=== PATIENT | female | born 1955 | race Caucasian/White ===

== ENCOUNTER 2017-09-28 09:30 | Outpatient (CLI) | payer OTHER | END 2017-09-28 09:31 | disposition home or self-care (01) | LOC: BICMAMMO 09:30 | PROVIDERS: ATTEND Family Medicine | DX: Z12.31 Encounter for screening mammogram for malignant neoplasm of breast (principal); R92.1 Mammographic calcification found on diagnostic imaging of breast | CPT/HCPCS: 77067 ==

== ENCOUNTER 2019-08-16 13:14 | Outpatient (CLI) | payer OTHER ==
[2019-08-16] MEDS ORDERED: Iopamidol-370 76% 500 ML 1 ML ONE (13:54)
[2019-08-16 13:58] LABS: Estimated GFR-MDRD - POC Greater than 90
--- NOTE | 2019-08-16 15:42 | CT ---
CT THORAX WITH CONTRAST: DATE: 08/16/2019. HISTORY: A 64-year-old female for followup of lung nodule. TECHNIQUE: IV iodinated contrast media: IV contrast 70 mL Isovue 370. COMPARISON: 11/30/2018. FINDINGS: In the lateral aspect of the superior segment of the right lower lobe, there is a noncalcified pulmon chetan nodule measuring approximately 1.3 x 0.5 x 0.7 cm. Allowing for slight differences in cursor jagruti cement, it has not significantly changed in size. No cardiomegaly, pericardial effusion, pleural effusion, or pneumothorax. Diffuse high-grade centril obular emphysematous changes throughout both lungs. Approximately 0.8 x 0.8 x 1.5 cm irregularly shaped, stellate, noncalcified pulmonary nodule in the l ateral aspect of apical segment of left upper lobe is unchanged. This probably represents focal pulm onary scar, but low-grade pulmonary adenocarcinoma is not excluded. No significant mediastinal or hilar lymphadenopathy. No thoracic aortic aneurysm or dissection. No major interval change overall. IMPRESSION: 1. Right lower lobe pulmonary nodule is unchanged. 2. Left upper lobe pulmonary nodule is unchanged. 3. High-grade centrilobular emphysema. 4. No interval change overall. 5. Recommend continued serial followup chest CTs, beginning in 1 year. REGLA Joe POS: NATHANIEL
== END 2019-08-16 13:15 | disposition home or self-care (01) ==
LOC: BICCT 13:14
PROVIDERS: ATTEND Internal Medicine Critical Care Medicine
DX: R91.1 Solitary pulmonary nodule (principal); J43.2 Centrilobular emphysema
CPT/HCPCS: 71260; 82565; Q9967

== ENCOUNTER 2020-04-12 21:42 | Inpatient (IN) | payer OTHER ==
[2020-04-12 22:34] LABS: Troponin I 0.444 ng/mL (< 0.028)
--- NOTE | 2020-04-12 22:56 | CON ---
DATE OF CONSULTATION: 04/12/2020 REASON FOR CONSULTATION: Abnormal EKG. HISTORY OF PRESENT ILLNESS: Ms. Ledbetter is a pleasant 65-year-old white female, who comes to the hospital for shortness of breath. She actually presented to the Medicine in the hospital at which time she was short winded. She has a significant history of COPD, followed by Dr. Lucia. She still continues to smoke a pack a day until this moment. She presented there, had what was diagnosed as COPD exacerbation and was being transferred over to be placed in the ambulance for transfer to the [place] and right before putting her in the ambulance, a repeat EKG was done and it showed ST elevations on the V3 and V4. Secondary to this, STEMI pager was activated and she was brought in for STEMI activation. On my evaluation, Ms. Ledbetter is severely short winded to the point where we have asked for her to be placed on BiPAP. She is tachypneic. She is denying any chest pain. Her biggest issue is shortness of breath and this is the same issue she always has with her COPD. She is unable to lay flat. PAST MEDICAL HISTORY: 1. COPD. 2. History of CVA, hemorrhagic. PAST SURGICAL HISTORY: Coiling of cerebral aneurysms by Dr. Gaspar in 2012. FAMILY HISTORY: Noncontributory. MEDICATIONS: Outpatient medications: Unavailable at this time. She is unable to talk in full sentences to say any of her medications; however, from chart review, she should be on; 1. Simvastatin 10 mg a day. 2. Potassium chloride 20 mEq a day. 3. Nimodipine 60 mg a day. 4. Ativan p.r.n. 5. Docusate 100 mg b.i.d. ALLERGIES: NO KNOWN DRUG ALLERGIES. SOCIAL HISTORY: Continues to smoke a pack a day. REVIEW OF SYSTEMS: Unobtainable as the patient is unable to talk given her severe shortness of breath. PHYSICAL EXAMINATION: VITAL SIGNS: Temperature 97.2, pulse 110, respiratory rate 30, saturating 96% on 50% FiO2 on the BiPAP currently, blood pressure is 97/62. GENERAL: Awake, alert, oriented to person, place, and time, in moderate to severe respiratory distress. HEENT: Normocephalic and atraumatic. NECK: Supple. LUNGS: Have no breath sounds. No wheezing. ABDOMEN: Soft. EXTREMITIES: No edema. SKIN: Warm and dry. LABORATORY DATA: Laboratory work was reviewed. White count of 9, hemoglobin of 14.9, hematocrit of 44, platelet count of 241. Chemistry unremarkable. Glucose of 134, creatinine is 0.68, potassium was 4.5. Chest x-ray was reviewed, COPD changes. EKG was reviewed, there is ST elevation on V3 and V4. No reciprocal changes. There is a deep Q-waves on those two leads. ASSESSMENT: 1. [id number]-[id number] myocardial infarction. 2. Chronic obstructive pulmonary disease exacerbation. 3. Acute hypoxic hypercapnic respiratory insufficiency. PLAN: 1. At this time, she is not stable for a heart catheterization. She is unable to lay flat and if we were to want to do a heart catheterization, she would have to be intubated and sedated. I think the main issue here is a COPD exacerbation and if we were to do an intubation just for heart catheterization, I think it would be detrimental to her. At this point, her troponin is just mildly elevated, we will trend it out. If it becomes severely elevated, we will plan on going to the lab. However, at this point, her only issue is shortness of breath, not having any chest pain and her EKG is not completely indicative of an acute PR. We will continue to treat medically with full dose of anticoagulation. She already received Lovenox at the outside facility. She should continue with full-dose Lovenox here twice a day. 2. Echocardiogram to be done in the morning. Thank you for letting us to participate in the care of your patient. We will follow. 45 minutes of critical care time. Job ID: [id number]
[2020-04-12] MEDS ORDERED: Nitroglycerin 0.4 MG TAB (25 Tab Bottle) SL PRN (23:02)
[2020-04-12] MEDS ORDERED: Heparin 10,000 UNITS/ 10 ML VIAL SLOW IVP SCH (23:15)
[2020-04-12 23:20] LABS: Hemoglobin 13.6 g/dL (12.0-16.0); Platelet Count 215 thou/uL (130-400)
[2020-04-12] MEDS ORDERED: Heparin 25,000 units/D5W 500 ML IVPB SCH (23:30)
[2020-04-12] MEDS ORDERED: Aspirin 325 MG TAB PO SCH (23:30)
[2020-04-13] MEDS ORDERED: Azithromycin 500 MG VIAL ONE (00:12)
[2020-04-13] MEDS ORDERED: methylPREDNISolone Sod Succ 40 MG VIAL ONE ×2 (00:12→06:49)
[2020-04-13] MEDS: Ipratropium Bromide 2.5 ml Neb NEB SCH ×2 (00:13→08:30)
[2020-04-13] MEDS ORDERED: Heparin 25,000 units/D5W 500 ML ONE (00:13)
[2020-04-13] MEDS ORDERED: Heparin 10,000 UNITS/ 10 ML VIAL ONE (00:20)
[2020-04-13] MEDS: Azithromycin 500 MG in Sodium Chloride 0.9% 250 ML 250 ML IVPB SCH (00:24)
[2020-04-13] MEDS: methylPREDNISolone Sod Succ 40 MG VIAL IVP SCH ×4 (00:25→17:31)
[2020-04-13] MEDS ORDERED: Norepinephrine 8 MG/0.9% NS 250 ML ONE (00:31)
[2020-04-13] MEDS ORDERED: cefTRIAXone\\ROCEPHIN 1 GM VIAL ONE (01:24)
--- NOTE | 2020-04-13 01:24 | HP ---
CHIEF COMPLAINT: Shortness of breath. HISTORY OF PRESENT ILLNESS: Ms. Ledbetter is a 65-year-old female, who presented to [facility] with shortness of breath. The patient was in respiratory distress, placed on BiPAP and was given bronchodilators, Solu-Medrol. During transfer, it was noted the patient had ST elevation on the air sampling and monitoring. The patient was given Lovenox, aspirin. Once the patient arrived, the assistant professor of archaeology saw the patient and evaluated the patient and decision not to take the patient to the collaborative physician. Currently, the patient is on BiPAP. She is feeling little better, but with increased work of breathing. The patient will be admitted to the Intensive Care Unit for further management. As per Cardiology consultation, the patient does have a non-ST elevation myocardial infarction, not stable to go for heart catheterization and as per assistant professor of archaeology, we will continue to trend troponin. If it becomes severely elevated, there will be consideration to do a heart catheterization. The patient also is not having any chest pain at this time and EKG is not completely indicated of acute PA. Recommendation is to continue with full dose Lovenox twice a day and to obtain a 2D echo in the morning. PAST MEDICAL HISTORY: 1. Chronic obstructive pulmonary disease. 2. CVA. PAST SURGICAL HISTORY: No surgical history reported. SOCIAL HISTORY: The patient drinks every day. She smokes cigarettes daily, about one pack a day. FAMILY HISTORY: Reviewed and noncontributory. HOME MEDICATIONS: See home medication reconciliation form for updated medications. ALLERGIES: NO KNOWN ALLERGIES. REVIEW OF SYSTEMS: Review of 14 systems negative except what is mentioned in history of present illness. PHYSICAL EXAMINATION: GENERAL: The patient is awake, alert, in moderate respiratory distress on BiPAP. VITAL SIGNS: Blood pressure 109/67, pulse is 86, respiratory rate is 16, temperature 98.6. HEAD AND NECK: Normocephalic, atraumatic. NECK: Supple. CHEST: Decreased air entry bilaterally. Respirations are labored. HEART: S1, S2. Regular, tachycardic. ABDOMEN: Soft, nontender. Bowel sounds present. NEUROLOGIC: Awake, alert, moving extremities. PSYCH: Unable to assess. EXTREMITIES: No clubbing or cyanosis. LABORATORY DATA: Repeat troponin of 0.4. EKG was suspicious for ST elevation PA. WBC is 9.0, hemoglobin 14.9, platelets 241. Sodium 135, potassium 4.3, BUN is 10, creatinine 0.6. BNP 638. ABG showed pH of 7.24, PCO2 of 72, PO2 of 180. Chest x-ray, marked chronic lung change. No definite acute process. ASSESSMENT AND PLAN: 1. Dzilb-fs-qyquotm hypercapnic respiratory failure. 2. Wtl-XG-vuarjrmxf myocardial infarction. 3. Chronic obstructive pulmonary disease with exacerbation. 4. Cigarette smoker. PLAN: 1. Admit to ICU/CCU. 2. Aspirin. 3. Continue with full-dose Lovenox as per assistant professor of archaeology. 4. Keep the patient n.p.o. for now. 5. Continue with BiPAP. 6. Bronchodilator scheduled as needed. 7. IV steroids. 8. Empiric IV antibiotics. 9. Reconcile home medications. 10. DVT prophylaxis. The patient will be on anticoagulation. 11. GI prophylaxis. 12. Expected length of stay, 2 midnights or more. Job ID: [id number]
[2020-04-13] MEDS: cefTRIAXone\\ROCEPHIN 1 GM in Sodium Chloride 0.9% 100 ML IVPB SCH (01:33)
[2020-04-13 01:35] LABS: Critical Call Chem Troponin I RESULT DECREASING; Troponin I 0.309 ng/mL (< 0.028)
[2020-04-13 04:19] LABS: Cardiac Risk 2.2 (Less than 4.5)
[2020-04-13 04:25] LABS: Troponin I 0.311 ng/mL (< 0.028)
[2020-04-13 06:25] LABS: PTT 127.9 sec (22.9-36.1)
--- NOTE | 2020-04-13 08:59 | CON ---
DATE OF CONSULTATION: 04/13/2020 REASON FOR CONSULTATION: COPD exacerbation with acute hypoxic hypercapnic respiratory failure. HISTORY OF PRESENT ILLNESS: The patient is a 65-year-old female, who presented to an outlying emergency room with severe shortness of breath, which started acutely yesterday morning. She was diagnosed with COPD exacerbation. She was noted to have some ST-segment elevation, for which a STEMI activation was performed and Cardiology came and saw her. She was deemed too unstable to go to the cardiac catheterization lab. She was placed on BiPAP and remained on that for quite sometime, but that was stopped before she came upstairs. I find the patient quite short of breath and cannot verbalize much secondary to her profound dyspnea. She was not on BiPAP when she arrived. PAST MEDICAL HISTORY: 1. Severe COPD. 2. Pulmonary nodules. 3. Stroke. PAST SURGICAL HISTORY: Cerebral aneurysm. FAMILY MEDICAL HISTORY: Unremarkable. MEDICATIONS: Prior to admission; 1. Simvastatin. 2. Potassium. 3. Nimodipine. 4. Docusate. 5. I think she is also on inhalers, but that will need to be confirmed. SOCIAL HISTORY: She has extensive history of tobacco use, but is down to 1 cigarette per day. ALLERGIES: NONE. REVIEW OF SYSTEMS: Cannot be obtained because of her extreme dyspnea at this time. PHYSICAL EXAMINATION: VITAL SIGNS: Heart rate 82, blood pressure 111/78, respiratory rate 30, O2 saturation 100%. The patient is using accessory neck muscles to breathe. HEENT: Unremarkable. NECK: Sternocleidomastoid retractions present. LUNGS: She has tight end-expiratory wheezing. CARDIOVASCULAR: S1 and S2. Regular. ABDOMEN: Soft and nontender to palpation. EXTREMITIES: No clubbing, cyanosis, or edema. LABORATORY DATA: White blood cell count 9.0, hematocrit 39, and platelet count 215 with no discernible left shift. ABG; pH 7.24, pCO2 of 72, pO2 of 180. Sodium 135, potassium 4.3, chloride 97, CO2 of 28, BUN 10, creatinine 0.6, glucose 134, troponin 0.31. I am told a COVID serology is pending. Chest x-ray shows hyperinflation without evidence of mass, effusion, or infiltrate. ASSESSMENT: 1. Chronic obstructive pulmonary disease with exacerbation. 2. Elevated troponin suggesting coronary ischemia. 3. Tobacco abuse. 4. History of pulmonary nodules. 5. History of stroke. PLAN: 1. She is currently being treated medically for an AL with anticoagulation, aspirin, and nitrates. 2. For COPD, we will give her IV corticosteroids, aggressive nebulization treatments, and BiPAP. Additionally, she will receive antibiotics. At the current time, the patient does need to stay in CCU as she has significant chance of getting worse. We will follow. The above encompassed 75 minutes time, of that time, greater than 50% of time spent with the patient and/or the patient's unit in the hospital. Job ID: [id number]
[2020-04-13] MEDS ORDERED: Enoxaparin Sodium 60 MG/0.6 ML SYRINGE SC SCH (09:00)
[2020-04-13 10:13] LABS: Anion Gap 11 mmol/L (10-20); BUN (Urea Nitrogen) 9 mg/dL (9.8-20.1); Calc. Creatinine Clearance 66 mL/min (70-130); Calcium 9.1 mg/dL (7.8-10.44); Carbon Dioxide 28 mmol/L (23-31); Chloride 101 mmol/L (98-107); Estimated GFR-MDRD Greater than 90; Glucose 131 mg/dL (80-115); Potassium 4.3 mmol/L (3.5-5.1); Sodium 136 mmol/L (136-145)
[2020-04-13] MEDS: Aspirin 325 mg Enteric Coated Tablet PO SCH (11:40)
[2020-04-13] MEDS: Famotidine 20 MG TAB PO SCH ×2 (11:40→19:46)
[2020-04-13 12:03] LABS: SARS-CoV-2 MS2 Positive; SARS-CoV-2 N Gene Negative; SARS-CoV-2 S Gene Negative; SARS-CoV-2 by NAA Not Detected (NotDetected); SARS-CoV-2 orf1ab Negative
--- NOTE | 2020-04-13 17:55 | PDOC.CPN ---
- Subjective Date: 04/13/20 Time: 17:53 Interval history: Doing better. Breathing minimally improved. No chest pain. - Review of Systems General: reports: fatigue. denies: fever/chills, weight/appetite/sleep changes, night sweats Respiratory: reports: congestion, shortness of breath, exercise intolerance. denies: cough Cardiovascular: denies: chest pain, palpitation, edema, paroxysmal nocturnal dyspnea, orthopnea Gastrointestinal: denies: nausea, vomiting, diarrhea, constipation, abd pain, GI bleeding Musculoskeletal: denies: pain, tenderness, stiffness, swelling, arthritis/arthralgias Neurological: denies: numbness, syncope, seizure, weakness - Objective Allergies/Adverse Reactions: Allergies Allergy/AdvReac Type Severity Reaction Status Date / Time No Known Drug Allergies Allergy Verified 11/18/12 23:51 Visit Medications: Current Medications Albuterol/Ipratropium (Ipratropium/Albuterol Sulfate 3 Ml Neb) 3 ml NEB [id number] [facility] Last Admin: 04/13/20 12:13 Dose: 3 ml Documented by: Arformoterol Tartrate (Arformoterol 15 Mcg/2 Ml Neb) 15 mcg NEB BID-RT BENITA Aspirin (Aspirin 325 Mg Enteric Coated Tablet) 325 mg PO DAILY [facility] Last Admin: 04/13/20 11:40 Dose: 325 mg Documented by: Budesonide (Budesonide 0.5 Mg/2 Ml Neb) 0.5 mg NEB BID-RT BENITA Enoxaparin Sodium (Enoxaparin Sodium 60 Mg/0.6 Ml Syringe) 50 mg SC Q12HR [facility] Famotidine (Famotidine 20 Mg Tab) 20 mg PO BID [facility] Last Admin: 04/13/20 11:40 Dose: 20 mg Documented by: Azithromycin 500 mg/ Sodium (Chloride) 250 mls @ 250 mls/hr IVPB 2359 [facility] Last Admin: 04/13/20 00:24 Dose: 250 mls Documented by: Ceftriaxone Sodium 1 gm/ (Sodium Chloride) 100 mls @ 200 mls/hr IVPB 0100 [facility] Last Admin: 04/13/20 01:33 Dose: 100 mls Documented by: Methylprednisolone Sodium Succinate (Methylprednisolone Sod Succ 40 Mg Vial) 40 mg IVP Q6HR [facility] Last Admin: 04/13/20 17:31 Dose: 40 mg Documented by: Montelukast Sodium (Montelukast Sodium 10 Mg Tablet) 10 mg PO QPM [facility] Nitroglycerin (Nitroglycerin 0.4 Mg Tab (25 Tab Bottle)) 0.4 mg SL Q5MIN PRN PRN Reason: Chest Pain Pneumococcal Polyvalent Vaccine (Pneumococcal 23 "Pneumovax" 0.5 Ml Vial) 0.5 ml IM .ONCE ONE Stop: 04/14/20 16:01 Sodium Chloride (Flush - Normal Saline 10 Ml Syringe) 10 ml IVF Q12HR [facility] Last Admin: 04/13/20 11:40 Dose: 10 ml Documented by: Sodium Chloride (Flush - Normal Saline 10 Ml Syringe) 10 ml IVF PRN PRN PRN Reason: Saline Flush Vital Signs & Weight: Vital Signs Temp Pulse Resp Pulse Ox 04/13/20 16:00 100 04/13/20 15:00 98.1 F 04/13/20 14:37 67 15 100 04/13/20 12:13 70 16 100 04/13/20 12:00 97.8 F 100 04/13/20 08:09 98.3 F 04/13/20 08:07 77 18 100 04/13/20 08:00 100 Weight 102 lb 4.712 oz - Physical Exam General: alert & oriented x3 HEENT: mucus membranes moist Neck: supple neck Cardiac: tachycardia Lungs: decreased breath sounds Neuro: no lateralizing findings Abdomen: active bowel sounds Extremities: no edema Skin: clear Musculoskeletal: no pain - Labs Result Diagrams: 04/12/20 21:53 04/13/20 09:47 Troponin/CKMB Troponin I 0.311 ng/mL (< 0.028) H* 04/13/20 03:37 - Telemetry Sinus rhythms and dysrhythmias: sinus tachycardia - Assessment/Plan Assessment/Plan: 1. COPD with acute exacerbation. 2. Acute hypoxic hypercapnic respiratory insufficiency. 3. Abnormal EKG 4. Type 2 AK, demand ischemia PLAN: - Would continue full anticoagulation for 48 hrs. - Primarily a lung issue but may have underlying CAD given her Hx of smoking. - Troponin trend is that of demand ischemia however and not an acute coronary syndrome. - Echo pending. - Will follow.
[2020-04-13] MEDS: Arformoterol 15 MCG/2 ML NEB NEB SCH (18:54)
[2020-04-13] MEDS: Budesonide 0.5 MG/2 ML NEB NEB SCH (18:56)
[2020-04-13] MEDS: Montelukast Sodium 10 mg Tablet PO SCH (19:46)
[2020-04-13] MEDS: Enoxaparin Sodium 60 MG/0.6 ML SYRINGE SC SCH (19:46)
--- NOTE | 2020-04-13 21:31 | PDOC.HOSPP ---
- Subjective Encounter Date: 04/13/20 Encounter Time: 11:00 Subjective: Patient was seen and examined in bed. She was on BiPAP otherwise denied no worsening shortness of breath. She also denied any chest pain and feels better - Objective Vital Signs & Weight: Vital Signs (12 hours) Temp Pulse Resp Pulse Ox 04/13/20 20:00 97 04/13/20 19:00 97.7 F 04/13/20 18:57 73 25 H 100 04/13/20 18:56 69 17 100 04/13/20 18:54 77 21 H 99 04/13/20 16:00 100 04/13/20 15:00 98.1 F 04/13/20 14:37 67 15 100 04/13/20 12:13 70 16 100 04/13/20 12:00 97.8 F 100 Weight Weight 102 lb 4.712 oz Most Recent Monitor Data Heart Rate from ECG 83 NIBP 94/44 NIBP BP-Mean 60 Respiration from ECG 21 SpO2 99 I&O: 04/12/20 04/13/20 04/14/20 06:59 06:59 06:59 Intake Total 960 Output Total 800 Balance 160 Result Diagrams: 04/12/20 21:53 04/13/20 09:47 Hospitalist ROS - Medication Medications: Active Medications Generic Name Dose Route Start Last Admin Trade Name Freq PRN Reason Stop Dose Admin Albuterol/Ipratropium 3 ml 04/13/20 13:00 04/13/20 18:57 Ipratropium/Albuterol Sulfate 3 Ml Neb NEB 3 ml [id number] BENITA Administration Arformoterol Tartrate 15 mcg 04/13/20 18:30 04/13/20 18:54 Arformoterol 15 Mcg/2 Ml Neb NEB 15 mcg BID-RT BENITA Administration Aspirin 325 mg 04/13/20 09:00 04/13/20 11:40 Aspirin 325 Mg Enteric Coated Tablet PO 325 mg DAILY [facility]ENITA Administration Budesonide 0.5 mg 04/13/20 18:30 04/13/20 18:56 Budesonide 0.5 Mg/2 Ml Neb NEB 0.5 mg BID-RT BENITA Administration Enoxaparin Sodium 50 mg 04/13/20 21:00 04/13/20 19:46 Enoxaparin Sodium 60 Mg/0.6 Ml Syringe SC 50 mg Q12HR BENITA Administration Famotidine 20 mg 04/13/20 09:00 04/13/20 19:46 Famotidine 20 Mg Tab PO 20 mg BID BENITA Administration Azithromycin 500 mg/ Sodium 250 mls @ 250 mls/hr 04/12/20 23:59 04/13/20 00:24 Chloride IVPB 250 mls 2359 BENITA Administration Ceftriaxone Sodium 1 gm/ 100 mls @ 200 mls/hr 04/13/20 01:00 04/13/20 01:33 Sodium Chloride IVPB 100 mls 0100 BENITA Administration Methylprednisolone Sodium Succinate 40 mg 04/12/20 23:59 04/13/20 17:31 Methylprednisolone Sod Succ 40 Mg Vial IVP 40 mg Q6HR BENITA Administration Montelukast Sodium 10 mg 04/13/20 21:00 04/13/20 19:46 Montelukast Sodium 10 Mg Tablet PO 10 mg QPM BENITA Administration Sodium Chloride 10 ml 04/13/20 09:00 04/13/20 19:47 Flush - Normal Saline 10 Ml Syringe IVF 10 ml Q12HR BENITA Administration - Exam General Appearance: awake alert Eye: PERRL, anicteric sclera Heart: RRR, no murmur, no gallops, no rubs Respiratory - other findings: Bilateral wheezing, reduced air entry bilaterally Gastrointestinal: soft, non-distended, normal bowel sounds Extremities: no cyanosis, no clubbing, no edema Neurological: cranial nerve grossly intact, no focal deficits Psychiatric: A&O x 3 Hosp A/P - Plan This is a 65-year-old female patient admitted on account of acute COPD exacerbation and concerns for acute coronary syndrome. COPD exacerbation Continue on steroids, antibiotics and monitor in ICU Continue on arformoterol, budesonide, Solu-Medrol and montelukast Pulmonology following. NSTEMI Continue anticoagulationLovenox Aspirin nitroglycerin Echocardiogram Cardiology following VTE prophylaxistherapeutic on Lovenox
[2020-04-14] MEDS: Azithromycin 500 MG in Sodium Chloride 0.9% 250 ML 250 ML IVPB SCH (00:52)
[2020-04-14] MEDS: methylPREDNISolone Sod Succ 40 MG VIAL IVP SCH ×4 (00:53→22:29)
[2020-04-14] MEDS: cefTRIAXone\\ROCEPHIN 1 GM in Sodium Chloride 0.9% 100 ML IVPB SCH (01:45)
[2020-04-14 03:33] LABS: #Lymphocytes 0.5 thou/uL (1.20-3.40); #Monocytes 0.3 thou/uL (0.11-0.59); #Neutrophils 3.7 thou/uL (1.40-6.50); %Basophils 0.3 % (0.0-1.0); %Eosinophils 0.2 % (0.0-10.0); %Lymphocytes 10.3 % (21.0-51.0); %Monocytes 7.4 % (0.0-10.0); %Neutrophils 81.8 % (42.0-75.0); Hemoglobin 11.4 g/dL (12.0-16.0); Mean Corpuscular HGB CONC 34.4 g/dL (32.0-36.0); Mean Corpuscular Hemoglobin 35.4 pg (27.0-31.0); Mean Platelet Volume 8.7 fL (7.4-10.4); Platelet Count 188 thou/uL (130-400); RBC Distribution Width 10.6 % (11.5-14.5); Red Blood Cell (RBC) Count 3.23 mill/uL (4.20-5.40); White Blood Cell (WBC) Count 4.5 thou/uL (4.8-10.8)
[2020-04-14] MEDS: Aspirin 325 mg Enteric Coated Tablet PO SCH (07:57)
[2020-04-14] MEDS: Enoxaparin Sodium 60 MG/0.6 ML SYRINGE SC SCH (07:57)
[2020-04-14] MEDS: Famotidine 20 MG TAB PO SCH ×2 (07:57→22:27)
[2020-04-14] MEDS: Budesonide 0.5 MG/2 ML NEB NEB SCH ×2 (08:23→19:10)
[2020-04-14] MEDS: Arformoterol 15 MCG/2 ML NEB NEB SCH ×2 (08:23→19:10)
--- NOTE | 2020-04-14 08:24 | PRG ---
DATE OF SERVICE: 04/14/2020 SUBJECTIVE: She has been taken off the BiPAP this morning and appears to be breathing quite well. My concern is she seems somewhat confused and dysarthric to what I remember her in the past. OBJECTIVE: VITAL SIGNS: Her temperature is 98.1, pulse 68, blood pressure 91/53, saturation 100%. HEENT: Unremarkable. NECK: No adenopathy or JVD. LUNGS: Clear anteriorly. No wheezing. CARDIAC: S1 and S2. Regular. ABDOMEN: Soft. EXTREMITIES: No edema. LABORATORY DATA: White blood cell count 4.5, hematocrit 33.3, and platelet count 188. PTT is 127. Chemistry was not done today. COVID test is negative. ASSESSMENT: 1. Chronic obstructive pulmonary disease with exacerbation. 2. Demand coronary ischemia. 3. Altered mental status. PLAN: 1. Decrease steroid dose. 2. Transfer to [facility] if okay with others on case. 3. CT head to rule out stroke. Job ID: [id number]
--- NOTE | 2020-04-14 10:11 | PDOC.HOSPP ---
- Subjective Encounter Date: 04/14/20 Encounter Time: 11:00 Subjective: The patient states she feels better. She states she was coughing a lot a few days ago and was very short of breath on Wednesday but now is doing better. She denies chest pain Patient states that she had a stroke 6 years ago and she was is in a longterm for approximately 2 months and had some weakness on one side of her body. Her speech has been slightly affected from this. - Objective Vital Signs & Weight: Vital Signs (12 hours) Temp Pulse Resp Pulse Ox 04/14/20 08:26 100 04/14/20 08:21 81 21 H 100 04/14/20 08:00 98.2 F 100 04/14/20 04:00 98.1 F 99 04/14/20 03:31 63 19 100 04/14/20 01:47 82 10 L 100 04/14/20 01:46 78 25 H 98 04/14/20 00:00 98 04/13/20 23:00 98.3 F 04/13/20 22:20 84 23 H 96 Weight Weight 102 lb 4.712 oz Most Recent Monitor Data Heart Rate from ECG 77 NIBP 118/66 NIBP BP-Mean 83 Respiration from ECG 19 SpO2 98 I&O: 04/13/20 04/14/20 04/15/20 06:59 06:59 06:59 Intake Total 1510 Output Total 1000 500 Balance 510 -500 Result Diagrams: 04/14/20 03:05 04/13/20 09:47 Hospitalist ROS - Review of Systems Constitutional: denies: fever, chills - Medication Medications: Active Medications Generic Name Dose Route Start Last Admin Trade Name Cedricq PRN Reason Stop Dose Admin Albuterol/Ipratropium 3 ml 04/13/20 13:00 04/14/20 08:21 Ipratropium/Albuterol Sulfate 3 Ml Neb NEB 3 ml [id number] BENITA Administration Arformoterol Tartrate 15 mcg 04/13/20 18:30 04/14/20 08:23 Arformoterol 15 Mcg/2 Ml Neb NEB 15 mcg BID-RT BENITA Administration Aspirin 325 mg 04/13/20 09:00 04/14/20 07:57 Aspirin 325 Mg Enteric Coated Tablet PO 325 mg DAILY BENITA Administration Budesonide 0.5 mg 04/13/20 18:30 04/14/20 08:23 Budesonide 0.5 Mg/2 Ml Neb NEB 0.5 mg BID-RT BENITA Administration Enoxaparin Sodium 50 mg 04/13/20 21:00 04/14/20 07:57 Enoxaparin Sodium 60 Mg/0.6 Ml Syringe SC 50 mg Q12HR BENITA Administration Famotidine 20 mg 04/13/20 09:00 04/14/20 07:57 Famotidine 20 Mg Tab PO 20 mg BID BENITA Administration Ceftriaxone Sodium 1 gm/ 100 mls @ 200 mls/hr 04/13/20 01:00 04/14/20 01:45 Sodium Chloride IVPB 100 mls 0100 BENITA Administration Methylprednisolone Sodium Succinate 20 mg 04/14/20 09:00 04/14/20 08:35 Methylprednisolone Sod Succ 40 Mg Vial IVP Not Given BID BENITA Montelukast Sodium 10 mg 04/13/20 21:00 04/13/20 19:46 Montelukast Sodium 10 Mg Tablet PO 10 mg QPM BENITA Administration Sodium Chloride 10 ml 04/13/20 09:00 04/14/20 07:58 Flush - Normal Saline 10 Ml Syringe IVF 10 ml Q12HR BENITA Administration - Exam General Appearance: NAD, awake alert Eye: PERRL, anicteric sclera ENT: normocephalic atraumatic, no oropharyngeal lesions Neck: no JVD Heart: RRR, no murmur, no gallops, no rubs Respiratory: CTAB, no wheezes, no rales, no ronchi Gastrointestinal: soft, non-tender, non-distended, normal bowel sounds Extremities: no cyanosis, no clubbing, no edema Skin: normal turgor, no lesions, no rashes Neurological: cranial nerve grossly intact, normal sensation to touch, no focal deficits, no new deficit, speech deficit (has some trouble with word finding and complex sentences) Musculoskeletal: normal tone, normal strength, no muscle wasting Psychiatric: normal affect, normal behavior, A&O x 3 Hosp A/P (1) Right lower lobe pulmonary nodule Code(s): R91.1 - SOLITARY PULMONARY NODULE Status: Acute (2) Left lower lobe pulmonary nodule Code(s): R91.1 - SOLITARY PULMONARY NODULE Status: Acute (3) Myocardial infarction due to demand ischemia Code(s): I21.A1 - MYOCARDIAL INFARCTION TYPE 2 Status: Acute (4) Macrocytic anemia Code(s): D53.9 - NUTRITIONAL ANEMIA, UNSPECIFIED Status: Acute - Plan Chest X ray: marked chronic lung change. Stable RLL pulmonary nodule. Nodule at left lung apex ECHO: EF is 40 to 45% with diastolic dysfunction. There is anteroseptal hypokinesis. There is a pericardial effusion without tamponade. There is mild TR. CT brain: Left MCA encephalomalacia . Remote right cerebellar hemisphere infarctions. Lacunar infarctions of the left basal ganglia of indeterminate age. This is a 65 year old female who was transferred. From [place] [facility] for shortness of breath and concern for ST elevation on quality assurance monitor final. Currently admitted for COPD exacerbation Acute hypoxic respiratory failure secondary to COPD exacerbation - currently on 2L nasal cannula, wean oxygen sat to 92%. Chest X ray normal - she is on duonebs, brovana and IV steroids. IV steroids tapered to bid - received ceftriaxone and azithromycin. I will discontinue ceftriaxone and switch azithromycin to oral to 50 mg - she was transferred to [facility] - cardiac rehab evaluation ordered #NSTEMI #Systolic heart failure - cardiology is following, not suspicious of acute coronary syndrome. Patient denies chest pain - continue lovenox for 48 hours per cardiology . Unable to do left heart cath at this time since patient cannot lay flat - ECHO showed reduce EF - continue aspirin. Will add statin History of previous stroke - continue aspirin 325 mg and will add statin Dispo: PT evaluation in am, possibly d/c home after
--- NOTE | 2020-04-14 11:51 | CT ---
CT HEAD WITHOUT IV CONTRAST COMPARISON: 12/24/2014 HISTORY: Altered mental status. History of prior strokes. TECHNIQUE: Axial CT imaging at 5 mm intervals from vertex through skull base without contrast FINDINGS: Again noted are embolization coils and coil masses in a left supraclinoid location similar to prior e xam. Stable area of encephalomalacia involving the left frontal and temporal lobes in the distribution of the left middle cerebral artery is again noted. There is ex vacuo dilatation of the l eft lateral ventricle. Low-density areas in the left basal ganglia are likely related to lacunar infarctions of indeterminate age and were not seen on the prior study but probably more remote in [facility]. A view low density areas are seen within the right cerebellar hemisphere likely related to small remote infarctions. There is no evidence of an acute cortical infarction, hemorrhage, mass effect, or midline shift. Skull base has a normal CT appearance. Mucosal thickening is present in the right maxillary antrum. The mastoid air cells are clear. Osseous structures appear intact. IMPRESSION: 1. No acute intracranial abnormality demonstrated. 2. Lacunar infarctions left basal ganglia of indeterminate age and were not seen on study in 2014. Ho wever, these infarctions are felt to more likely be related to remote lacunar infarctions. No acute cortical infarction is seen. 3. Remote right cerebellar hemisphere infarctions. 4. Encephalomalacia in the distribution of the left middle cerebral artery. 5. Mucosal thickening right maxillary antrum.
--- NOTE | 2020-04-14 15:00 | PDOC.CPN ---
- Subjective Date: 04/14/20 Time: 14:58 Interval history: Breathing better than yesterday now off BiPAP. No chest pain. - Review of Systems General: denies: fever/chills, weight/appetite/sleep changes, night sweats, fatigue Respiratory: reports: shortness of breath. denies: cough, congestion, exercise intolerance Cardiovascular: denies: chest pain, palpitation, edema, paroxysmal nocturnal dyspnea, orthopnea Gastrointestinal: denies: nausea, vomiting, diarrhea, constipation, abd pain, GI bleeding Musculoskeletal: denies: pain, tenderness, stiffness, swelling, arthritis/arthralgias Neurological: denies: numbness, syncope, seizure, weakness - Objective Allergies/Adverse Reactions: Allergies Allergy/AdvReac Type Severity Reaction Status Date / Time No Known Drug Allergies Allergy Verified 11/18/12 23:51 Visit Medications: Current Medications Albuterol/Ipratropium (Ipratropium/Albuterol Sulfate 3 Ml Neb) 3 ml NEB [id number] [facility] Last Admin: 04/14/20 13:44 Dose: 3 ml Documented by: Arformoterol Tartrate (Arformoterol 15 Mcg/2 Ml Neb) 15 mcg NEB BID-RT [facility]ENITA Last Admin: 04/14/20 08:23 Dose: 15 mcg Documented by: Aspirin (Aspirin 325 Mg Enteric Coated Tablet) 325 mg PO DAILY [facility] Last Admin: 04/14/20 07:57 Dose: 325 mg Documented by: Budesonide (Budesonide 0.5 Mg/2 Ml Neb) 0.5 mg NEB BID-RT [facility] Last Admin: 04/14/20 08:23 Dose: 0.5 mg Documented by: Enoxaparin Sodium (Enoxaparin Sodium 60 Mg/0.6 Ml Syringe) 50 mg SC Q12HR [facility] Last Admin: 04/14/20 07:57 Dose: 50 mg Documented by: Famotidine (Famotidine 20 Mg Tab) 20 mg PO BID [facility] Last Admin: 04/14/20 07:57 Dose: 20 mg Documented by: Ceftriaxone Sodium 1 gm/ (Sodium Chloride) 100 mls @ 200 mls/hr IVPB 0100 [facility] Last Admin: 04/14/20 01:45 Dose: 100 mls Documented by: Methylprednisolone Sodium Succinate (Methylprednisolone Sod Succ 40 Mg Vial) 20 mg IVP BID [facility] Last Admin: 04/14/20 08:35 Dose: Not Given Documented by: Montelukast Sodium (Montelukast Sodium 10 Mg Tablet) 10 mg PO QPM [facility] Last Admin: 04/13/20 19:46 Dose: 10 mg Documented by: Nitroglycerin (Nitroglycerin 0.4 Mg Tab (25 Tab Bottle)) 0.4 mg SL Q5MIN PRN PRN Reason: Chest Pain Pneumococcal Polyvalent Vaccine (Pneumococcal 23 "Pneumovax" 0.5 Ml Vial) 0.5 ml IM .ONCE ONE Stop: 04/14/20 16:01 Sodium Chloride (Flush - Normal Saline 10 Ml Syringe) 10 ml IVF Q12HR [facility] Last Admin: 04/14/20 07:58 Dose: 10 ml Documented by: Sodium Chloride (Flush - Normal Saline 10 Ml Syringe) 10 ml IVF PRN PRN PRN Reason: Saline Flush Vital Signs & Weight: Vital Signs Temp Pulse Resp Pulse Ox 04/14/20 13:44 87 18 99 04/14/20 12:00 97.8 F 04/14/20 10:50 81 19 99 04/14/20 08:26 100 04/14/20 08:21 81 21 H 100 04/14/20 08:00 98.2 F 100 04/14/20 04:00 98.1 F 99 04/14/20 03:31 63 19 100 Weight 102 lb 4.712 oz - Physical Exam General: alert & oriented x3 HEENT: normocephaly Neck: supple neck Cardiac: tachycardia Lungs: normal breath sounds Neuro: no lateralizing findings Abdomen: active bowel sounds Extremities: no edema Skin: clear Musculoskeletal: no pain - Labs Result Diagrams: 04/14/20 03:05 04/13/20 09:47 Troponin/CKMB Troponin I 0.311 ng/mL (< 0.028) H* 04/13/20 03:37 - Telemetry Sinus rhythms and dysrhythmias: sinus tachycardia - Assessment/Plan Assessment/Plan: 1. COPD with acute exacerbation. 2. Acute hypoxic hypercapnic respiratory insufficiency. 3. Abnormal EKG 4. Type 2 MN, demand ischemia 5. Cardiomyopathy EF at 40-45% PLAN: - Continue full anticoagulation for 48 hrs. - Primarily a lung issue but may have underlying CAD given her Hx of smoking. - EF reduced with mild septal hypokinesis. - Troponin trend is that of demand ischemia however and not an acute coronary syndrome. - Will likely need risk stratification with stress or LHC however at this time she is unable to lay flat. Her COPD is so advanced that it may not be in her best interest to undergo any invasive procedures. - Will follow.
[2020-04-14] MEDS: Montelukast Sodium 10 mg Tablet PO SCH (22:27)
[2020-04-14] MEDS: Atorvastatin Calcium 40 MG TAB PO SCH (22:28)
[2020-04-14] MEDS: Azithromycin 250 MG TAB PO SCH (22:28)
[2020-04-14 23:38] LABS: Platelet Count 194 thou/uL (130-400)
[2020-04-15] MEDS: Enoxaparin Sodium 60 MG/0.6 ML SYRINGE SC SCH ×3 (03:04→21:13)
[2020-04-15 03:54] LABS: #Lymphocytes 0.3 thou/uL (1.20-3.40); #Monocytes 0.2 thou/uL (0.11-0.59); #Neutrophils 6.1 thou/uL (1.40-6.50); %Eosinophils 0.1 % (0.0-10.0); %Lymphocytes 3.9 % (21.0-51.0); %Monocytes 3.5 % (0.0-10.0); %Neutrophils 92.5 % (42.0-75.0); Hemoglobin 11.5 g/dL (12.0-16.0); Mean Corpuscular HGB CONC 34.2 g/dL (32.0-36.0); Mean Corpuscular Hemoglobin 35.8 pg (27.0-31.0); Mean Platelet Volume 8.7 fL (7.4-10.4); Platelet Count 187 thou/uL (130-400); RBC Distribution Width 10.7 % (11.5-14.5); Red Blood Cell (RBC) Count 3.19 mill/uL (4.20-5.40); White Blood Cell (WBC) Count 6.6 thou/uL (4.8-10.8)
[2020-04-15 04:06] LABS: Anion Gap 12 mmol/L (10-20); BUN (Urea Nitrogen) 21 mg/dL (9.8-20.1); Calc. Creatinine Clearance 64 mL/min (70-130); Calcium 8.7 mg/dL (7.8-10.44); Carbon Dioxide 27 mmol/L (23-31); Chloride 100 mmol/L (98-107); Estimated GFR-MDRD Greater than 90; Glucose 143 mg/dL (80-115); Potassium 3.7 mmol/L (3.5-5.1); Sodium 135 mmol/L (136-145)
[2020-04-15] MEDS: Arformoterol 15 MCG/2 ML NEB NEB SCH ×2 (06:50→19:07)
[2020-04-15] MEDS: Budesonide 0.5 MG/2 ML NEB NEB SCH ×2 (06:54→19:07)
[2020-04-15] MEDS: Famotidine 20 MG TAB PO SCH ×2 (09:56→21:12)
--- NOTE | 2020-04-15 09:56 | PRG ---
DATE OF SERVICE: 04/15/2020 SUBJECTIVE: She seemed a little confused today, but does not appear to be in any respiratory distress. OBJECTIVE: VITAL SIGNS: Temperature 98.1, pulse 81, blood pressure 128/80, and O2 saturation 95%. HEENT: Unremarkable. NECK: No adenopathy or JVD. LUNGS: Clear, but distant breath sounds. CARDIAC: S1 and S2. Regular. ABDOMEN: Soft. EXTREMITIES: No edema. DIAGNOSTIC STUDIES: Head CT showed some old lacunar infarcts and some remote right cerebellar hemispheric infarctions. Echocardiogram demonstrates decreased EF of 40% to 45% with some diastolic dysfunction. LABORATORY DATA: White blood cell count 6.6, hematocrit 33.5, and platelet count 187. Sodium 135, potassium 3.7, chloride 100, CO2 of 27, BUN 21, creatinine 0.6, and glucose 143. ASSESSMENT: 1. Chronic obstructive pulmonary disease with exacerbation. 2. Previous strokes with some degree of expressive aphasia. 3. Demand coronary ischemia. PLAN: 1. Continue low-dose steroids, nebulization treatments, but extend interval of nebs to every 4 hours. 2. She can probably go to the medical floor later today if she does not require BiPAP. Job ID: [id number]
[2020-04-15] MEDS: methylPREDNISolone Sod Succ 40 MG VIAL IVP SCH ×2 (09:57→21:13)
[2020-04-15] MEDS: Aspirin 325 mg Enteric Coated Tablet PO SCH (09:57)
--- NOTE | 2020-04-15 13:39 | PQF ---
CLINICAL DOCUMENTATION CLARIFICATION FORM: Dear Dr. Hendricks Date: 04/15/20 Please exercise your independent, professional judgment in responding to the clarification form. Clinical indicators are provided on the bottom of this form for your review. Please check appropriate box(es): [ ] Protein Calorie Malnutrition: [ X ] Mild [ ] Moderate [ ] Severe [ ] Other Malnutrition (please specify) [ ] Underweight without malnutrition [ ] Cachexia [ ] Other diagnosis [ ] Unable to determine In addition, please specify: Present on Admission (POA): [ X] Yes [ ] No [ ] Unable to determine For continuity of documentation, please document condition throughout progress notes and discharge summary. Thank You. To be completed by CDI/Coding staff for physician review: CLINICAL INDICATORS - SIGNS / SYMPTOMS / LABS / RESULTS AND LOCATION IN MR DIETARY NOTE 04/15: "MILD MUSCLE WASTING TO TRAPEZIUS" ER NOTE: "PATIENT IS FRAIL-APPEARING" BMI 17.6 RISKS: H/O COPD (H&P- MOHAMED-SAURAV) SMOKER (H&P) DAILY ALCOHOL CONSUMPTION (H&P) TREATMENT: DIETARY CONSULT 04/15 NUTRITIONAL SUPPLEMENTS RECOMMENDED (DIETARY ASSESSMENT 04/15) Moderate Malnutrition (in acute illness) Energy Intake: <75% of estimated energy requirement for > 7 days Weight Loss: 1-2%/1 week; 5%/ 1 month; 7.5%/3 months Other: mild body fat loss; mild muscle mass loss; mild fluid accumulation; Severe Malnutrition (in acute illness) Energy Intake: = 50% of estimated energy requirement for = 5 days Weight Loss: >2%/1 week; >5%/1 month; >7.5%/3 months Other: moderate body fat loss; moderate muscle mass loss; moderate- severe fluid accumulation; 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 Moderate Malnutrition (in chronic illness) Energy Intake: <75% of estimated energy requirement for =1 month Weight Loss: 5%/1 month; 7.5%/3 months; 10%/6 months; 20%/1 year Other: mild body fat loss; mild muscle mass loss; mild fluid accumulation Severe Malnutrition (in chronic illness) Energy Intake: =75% of estimated energy requirement for =1 month Weight Loss: >5%/1 month; >7.5%/3 months; >10%/6 months; >20%/1 year Other: severe body fat loss; severe muscle mass loss; severe fluid accumulation; 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
--- NOTE | 2020-04-15 14:28 | PDOC.CPN ---
- Subjective Date: 04/15/20 Time: 14:26 Interval history: Her breathing is getting better but she feels very weak and has difficulty even standing up due to lack of strength. - Review of Systems General: denies: fever/chills, weight/appetite/sleep changes, night sweats, fatigue Respiratory: reports: shortness of breath, exercise intolerance. denies: cough, congestion Cardiovascular: denies: chest pain, palpitation, edema, paroxysmal nocturnal dyspnea, orthopnea Gastrointestinal: denies: nausea, vomiting, diarrhea, constipation, abd pain, GI bleeding Musculoskeletal: denies: pain, tenderness, stiffness, swelling, arthritis/arthralgias Neurological: denies: numbness, syncope, seizure, weakness - Objective Allergies/Adverse Reactions: Allergies Allergy/AdvReac Type Severity Reaction Status Date / Time No Known Drug Allergies Allergy Verified 11/18/12 23:51 Visit Medications: Current Medications Albuterol/Ipratropium (Ipratropium/Albuterol Sulfate 3 Ml Neb) 3 ml NEB [id number] [facility] Last Admin: 04/15/20 10:19 Dose: 3 ml Documented by: Arformoterol Tartrate (Arformoterol 15 Mcg/2 Ml Neb) 15 mcg NEB BID-RT [facility]ENITA Last Admin: 04/15/20 06:50 Dose: 15 mcg Documented by: Aspirin (Aspirin 325 Mg Enteric Coated Tablet) 325 mg PO DAILY [facility] Last Admin: 04/15/20 09:57 Dose: 325 mg Documented by: Atorvastatin Calcium (Atorvastatin Calcium 40 Mg Tab) 40 mg PO HS [facility] Last Admin: 04/14/20 22:28 Dose: 40 mg Documented by: Azithromycin (Azithromycin 250 Mg Tab) 250 mg PO Q24HR BENITA Stop: 04/17/20 23:01 Last Admin: 04/14/20 22:28 Dose: 250 mg Documented by: Budesonide (Budesonide 0.5 Mg/2 Ml Neb) 0.5 mg NEB BID-RT [facility] Last Admin: 04/15/20 06:54 Dose: 0.5 mg Documented by: Enoxaparin Sodium (Enoxaparin Sodium 60 Mg/0.6 Ml Syringe) 50 mg SC Q12HR [facility] Last Admin: 04/15/20 03:04 Dose: Not Given Documented by: Famotidine (Famotidine 20 Mg Tab) 20 mg PO BID [facility] Last Admin: 04/15/20 09:56 Dose: 20 mg Documented by: Methylprednisolone Sodium Succinate (Methylprednisolone Sod Succ 40 Mg Vial) 20 mg IVP BID [facility] Last Admin: 04/15/20 09:57 Dose: 20 mg Documented by: Montelukast Sodium (Montelukast Sodium 10 Mg Tablet) 10 mg PO QPM [facility] Last Admin: 04/14/20 22:27 Dose: 10 mg Documented by: Nitroglycerin (Nitroglycerin 0.4 Mg Tab (25 Tab Bottle)) 0.4 mg SL Q5MIN PRN PRN Reason: Chest Pain Sodium Chloride (Flush - Normal Saline 10 Ml Syringe) 10 ml IVF Q12HR [facility] Last Admin: 04/15/20 09:59 Dose: 10 ml Documented by: Sodium Chloride (Flush - Normal Saline 10 Ml Syringe) 10 ml IVF PRN PRN PRN Reason: Saline Flush Vital Signs & Weight: Vital Signs Temp Pulse Pulse Pulse Resp BP BP 04/15/20 12:07 87 103 H 146/84 H 165/104 H 04/15/20 11:31 98.2 F 04/15/20 10:19 85 18 04/15/20 08:00 04/15/20 07:00 98.1 F 04/15/20 06:54 79 20 04/15/20 06:53 79 20 04/15/20 06:50 79 20 04/15/20 03:50 98.6 F 04/15/20 03:39 Pulse Ox Pulse Ox 04/15/20 12:07 95 04/15/20 11:31 04/15/20 10:19 100 04/15/20 08:00 95 04/15/20 07:00 04/15/20 06:54 04/15/20 06:53 04/15/20 06:50 04/15/20 03:50 04/15/20 03:39 99 Admit Weight 102 lb 4.712 oz Weight 102 lb 4.712 oz - Physical Exam General: alert & oriented x3 HEENT: mucus membranes moist Neck: supple neck Cardiac: regular rate and rhythm Lungs: decreased breath sounds Neuro: no lateralizing findings Abdomen: active bowel sounds Extremities: no edema Skin: clear Musculoskeletal: no pain - Labs Result Diagrams: 04/15/20 03:09 04/15/20 03:09 Troponin/CKMB Troponin I 0.311 ng/mL (< 0.028) H* 04/13/20 03:37 - Telemetry Sinus rhythms and dysrhythmias: sinus rhythm - Assessment/Plan Assessment/Plan: 1. COPD with acute exacerbation. 2. Acute hypoxic hypercapnic respiratory insufficiency. 3. Abnormal EKG 4. Type 2 IA, demand ischemia 5. Cardiomyopathy EF at 40-45% PLAN: - Done with full anticoagulation at this point. - Primarily a lung issue but may have underlying CAD given her Hx of smoking. - EF reduced with mild septal hypokinesis. - Troponin trend is that of demand ischemia and not an acute coronary syndrome. - Will need risk stratification with stress test as outpatient once better from lung perspective. - Will follow.
--- NOTE | 2020-04-15 17:43 | PDOC.HOSPP ---
- Subjective Encounter Date: 04/15/20 Encounter Time: 10:00 Subjective: The patient states she is still short of breath a t times. Per nursing she gets tachypneic to 30's, partially combination of anxiety and COPD. She had not seen PT yet when I saw her this mroning - Objective Vital Signs & Weight: Vital Signs (12 hours) Temp Pulse Pulse Pulse Resp BP BP 04/15/20 14:26 79 18 04/15/20 12:07 87 103 H 146/84 H 165/104 H 04/15/20 11:31 98.2 F 04/15/20 10:19 85 18 04/15/20 08:00 04/15/20 07:00 98.1 F 04/15/20 06:54 79 20 04/15/20 06:53 79 20 04/15/20 06:50 79 20 Pulse Ox Pulse Ox 04/15/20 14:26 99 04/15/20 12:07 95 04/15/20 11:31 04/15/20 10:19 100 04/15/20 08:00 95 04/15/20 07:00 04/15/20 06:54 04/15/20 06:53 04/15/20 06:50 Weight Admit Weight 102 lb 4.712 oz Weight 102 lb 4.712 oz Most Recent Monitor Data Heart Rate from ECG 98 NIBP 155/100 NIBP BP-Mean 118 Respiration from ECG 25 SpO2 93 I&O: 04/14/20 04/15/20 04/16/20 06:59 06:59 06:59 Intake Total 1510 120 Output Total 1000 900 700 Balance 081 -408 -491 Result Diagrams: 04/15/20 03:09 04/15/20 03:09 Hospitalist ROS - Review of Systems Constitutional: denies: fever, chills - Medication Medications: Active Medications Generic Name Dose Route Start Last Admin Trade Name Freq PRN Reason Stop Dose Admin Albuterol/Ipratropium 3 ml 04/15/20 10:30 04/15/20 14:26 Ipratropium/Albuterol Sulfate 3 Ml Neb NEB 3 ml [id number] BENITA Administration Arformoterol Tartrate 15 mcg 04/13/20 18:30 04/15/20 06:50 Arformoterol 15 Mcg/2 Ml Neb NEB 15 mcg BID-RT BENITA Administration Aspirin 325 mg 04/13/20 09:00 04/15/20 09:57 Aspirin 325 Mg Enteric Coated Tablet PO 325 mg DAILY BENITA Administration Atorvastatin Calcium 40 mg 04/14/20 21:00 04/14/20 22:28 Atorvastatin Calcium 40 Mg Tab PO 40 mg HS BENITA Administration Azithromycin 250 mg 04/14/20 23:00 04/14/20 22:28 Azithromycin 250 Mg Tab PO 04/17/20 23:01 250 mg Q24HR BENITA Administration Budesonide 0.5 mg 04/13/20 18:30 04/15/20 06:54 Budesonide 0.5 Mg/2 Ml Neb NEB 0.5 mg BID-RT BENITA Administration Enoxaparin Sodium 50 mg 04/13/20 21:00 04/15/20 03:04 Enoxaparin Sodium 60 Mg/0.6 Ml Syringe SC Not Given Q12HR BENITA Famotidine 20 mg 04/13/20 09:00 04/15/20 09:56 Famotidine 20 Mg Tab PO 20 mg BID BENITA Administration Methylprednisolone Sodium Succinate 20 mg 04/14/20 09:00 04/15/20 09:57 Methylprednisolone Sod Succ 40 Mg Vial IVP 20 mg BID BENITA Administration Montelukast Sodium 10 mg 04/13/20 21:00 04/14/20 22:27 Montelukast Sodium 10 Mg Tablet PO 10 mg QPM BENITA Administration Sodium Chloride 10 ml 04/13/20 09:00 04/15/20 09:59 Flush - Normal Saline 10 Ml Syringe IVF 10 ml Q12HR BENITA Administration - Exam General Appearance: NAD, awake alert Eye: PERRL, anicteric sclera ENT: normocephalic atraumatic, no oropharyngeal lesions Neck: no JVD Heart: RRR, no murmur, no gallops, no rubs Respiratory: no rales, no ronchi Respiratory - other findings: diminished breath sounds bilaterally Gastrointestinal: soft, non-tender, non-distended, normal bowel sounds Extremities: no cyanosis, no clubbing, no edema Skin: normal turgor, no lesions, no rashes Neurological: cranial nerve grossly intact, normal sensation to touch, no weakness, no new deficit Neurological - other findings: right sided weakness from old stroke. Expressive aphasia Musculoskeletal: normal tone, normal strength, no muscle wasting, diffuse muscle atrophy Musculoskeletal - other findings: RUE 3/5 strength. LUE and LLE 5/5 . Full ROM of lower extremities Psychiatric: normal affect, normal behavior, A&O x 3 Hosp A/P (1) Right lower lobe pulmonary nodule Code(s): R91.1 - SOLITARY PULMONARY NODULE Status: Acute (2) Left lower lobe pulmonary nodule Code(s): R91.1 - SOLITARY PULMONARY NODULE Status: Acute (3) Myocardial infarction due to demand ischemia Code(s): I21.A1 - MYOCARDIAL INFARCTION TYPE 2 Status: Acute (4) Macrocytic anemia Code(s): D53.9 - NUTRITIONAL ANEMIA, UNSPECIFIED Status: Acute - Plan Chest X ray: marked chronic lung change. Stable RLL pulmonary nodule. Nodule at left lung apex ECHO: EF is 40 to 45% with diastolic dysfunction. There is anteroseptal hypokinesis. There is a pericardial effusion without tamponade. There is mild TR. CT brain: Left MCA encephalomalacia . Remote right cerebellar hemisphere infarctions. Lacunar infarctions of the left basal ganglia of indeterminate age. This is a 65 year old female who was transferred. From [place] [facility] for shortness of breath and concern for ST elevation on radiation monitor. Currently admitted for COPD exacerbation Acute hypoxic respiratory failure secondary to COPD exacerbation - currently on 2L nasal cannula, wean oxygen sat to 92%. Chest X ray normal - she is on duonebs, brovana and IV steroids. Continue steroids IV bid - received ceftriaxone and azithromycin. Continue azithromycin day 2/5 - PT saw her and recommended home with home health #NSTEMI #Systolic heart failure - cardiology is following, not suspicious of acute coronary syndrome. Patient denies chest pain - lovenox was given once, but further doses not given due to high PTT. Repeat PTT today normall. Per cardiology, okay to hold off on further lovenox - continue aspirin and statin RLL Pulmonary nodule and left lung nodule - stable, continue outpatient follow up History of previous stroke - continue aspirin 325 mg and will add statin Dispo : likely d/c home with home health tomorrow.
[2020-04-15] MEDS: Montelukast Sodium 10 mg Tablet PO SCH (21:13)
[2020-04-15] MEDS: Atorvastatin Calcium 40 MG TAB PO SCH (21:13)
[2020-04-15] MEDS: Azithromycin 250 MG TAB PO SCH (22:21)
[2020-04-16] MEDS: Arformoterol 15 MCG/2 ML NEB NEB SCH ×2 (08:11→18:47)
[2020-04-16] MEDS: Budesonide 0.5 MG/2 ML NEB NEB SCH ×2 (08:12→18:47)
[2020-04-16] MEDS: Aspirin 325 mg Enteric Coated Tablet PO SCH (09:07)
[2020-04-16] MEDS: Enoxaparin Sodium 60 MG/0.6 ML SYRINGE SC SCH (09:07)
[2020-04-16] MEDS: methylPREDNISolone Sod Succ 40 MG VIAL IVP SCH ×2 (09:07→21:51)
[2020-04-16] MEDS: Famotidine 20 MG TAB PO SCH ×2 (09:07→21:51)
--- NOTE | 2020-04-16 09:18 | PRG ---
DATE OF SERVICE: 04/16/2020 SUBJECTIVE: The patient remains somewhat dysarthric and confused, but does not appear very short of breath. OBJECTIVE: VITAL SIGNS: O2 sat 100% on 2 L, pulse 81, blood pressure 149/111. HEENT: Unremarkable. NECK: No adenopathy or JVD. LUNGS: Clear. Distant breath sounds. CARDIAC: S1, S2 regular. ABDOMEN: Soft. EXTREMITIES: No edema. ASSESSMENT: Chronic obstructive pulmonary disease with exacerbation. PLAN: Continue low-dose steroids, nebulization treatments. From my standpoint, she is stable for transfer to [facility]. Job ID: [id number]
--- NOTE | 2020-04-16 17:08 | PDOC.CPN ---
- Subjective Date: 04/16/20 Time: 17:07 Interval history: No chest pain. Breathing still an issue. She gets anxious and feels she cant breath. She cries easily. - Review of Systems General: denies: fever/chills, weight/appetite/sleep changes, night sweats, fatigue Respiratory: denies: cough, congestion, shortness of breath, exercise intolerance Cardiovascular: denies: chest pain, palpitation, edema, paroxysmal nocturnal dyspnea, orthopnea Gastrointestinal: denies: nausea, vomiting, diarrhea, constipation, abd pain, GI bleeding Musculoskeletal: denies: pain, tenderness, stiffness, swelling, arthritis/arthralgias Neurological: denies: numbness, syncope, seizure, weakness - Objective Allergies/Adverse Reactions: Allergies Allergy/AdvReac Type Severity Reaction Status Date / Time No Known Drug Allergies Allergy Verified 11/18/12 23:51 Visit Medications: Current Medications Albuterol/Ipratropium (Ipratropium/Albuterol Sulfate 3 Ml Neb) 3 ml NEB [id number] [facility] Last Admin: 04/16/20 13:53 Dose: 3 ml Documented by: Arformoterol Tartrate (Arformoterol 15 Mcg/2 Ml Neb) 15 mcg NEB BID-RT BENITA Last Admin: 04/16/20 08:11 Dose: 15 mcg Documented by: Aspirin (Aspirin 325 Mg Enteric Coated Tablet) 325 mg PO DAILY [facility] Last Admin: 04/16/20 09:07 Dose: 325 mg Documented by: Atorvastatin Calcium (Atorvastatin Calcium 40 Mg Tab) 40 mg PO HS [facility] Last Admin: 04/15/20 21:13 Dose: 40 mg Documented by: Azithromycin (Azithromycin 250 Mg Tab) 250 mg PO Q24HR [facility] Stop: 04/17/20 23:01 Last Admin: 04/15/20 22:21 Dose: 250 mg Documented by: Budesonide (Budesonide 0.5 Mg/2 Ml Neb) 0.5 mg NEB BID-RT [facility] Last Admin: 04/16/20 08:12 Dose: 0.5 mg Documented by: Enoxaparin Sodium (Enoxaparin Sodium 60 Mg/0.6 Ml Syringe) 50 mg SC Q12HR BENITA Last Admin: 04/16/20 09:07 Dose: 50 mg Documented by: Famotidine (Famotidine 20 Mg Tab) 20 mg PO BID [facility] Last Admin: 04/16/20 09:07 Dose: 20 mg Documented by: Methylprednisolone Sodium Succinate (Methylprednisolone Sod Succ 40 Mg Vial) 20 mg IVP BID [facility] Last Admin: 04/16/20 09:07 Dose: 20 mg Documented by: Montelukast Sodium (Montelukast Sodium 10 Mg Tablet) 10 mg PO QPM [facility] Last Admin: 04/15/20 21:13 Dose: 10 mg Documented by: Nitroglycerin (Nitroglycerin 0.4 Mg Tab (25 Tab Bottle)) 0.4 mg SL Q5MIN PRN PRN Reason: Chest Pain Sodium Chloride (Flush - Normal Saline 10 Ml Syringe) 10 ml IVF Q12HR [facility] Last Admin: 04/16/20 09:08 Dose: 10 ml Documented by: Sodium Chloride (Flush - Normal Saline 10 Ml Syringe) 10 ml IVF PRN PRN PRN Reason: Saline Flush Vital Signs & Weight: Vital Signs Temp Pulse Pulse Pulse Resp BP BP 04/16/20 13:53 71 15 04/16/20 11:21 98.0 F 04/16/20 10:42 81 23 H 04/16/20 09:50 84 86 130/76 117/79 04/16/20 08:12 04/16/20 08:11 80 20 04/16/20 08:10 80 20 04/16/20 08:00 04/16/20 07:39 98.0 F Pulse Ox Pulse Ox Pulse Ox 04/16/20 13:53 100 04/16/20 11:21 04/16/20 10:42 100 04/16/20 09:50 98 94 L 04/16/20 08:12 100 04/16/20 08:11 100 04/16/20 08:10 100 04/16/20 08:00 100 04/16/20 07:39 Admit Weight 102 lb 4.712 oz Weight 102 lb 8 oz - Physical Exam General: alert & oriented x3 HEENT: mucus membranes moist Neck: supple neck Cardiac: regular rate and rhythm Lungs: decreased breath sounds Neuro: grossly intact Abdomen: active bowel sounds Extremities: no edema Skin: clear Musculoskeletal: no pain - Labs Result Diagrams: 04/15/20 03:09 04/15/20 03:09 Troponin/CKMB Troponin I 0.311 ng/mL (< 0.028) H* 04/13/20 03:37 - Telemetry Sinus rhythms and dysrhythmias: sinus rhythm - Assessment/Plan Assessment/Plan: 1. COPD with acute exacerbation. 2. Acute hypoxic hypercapnic respiratory insufficiency. 3. Abnormal EKG 4. Type 2 MA, demand ischemia 5. Cardiomyopathy EF at 40-45% PLAN: - Primarily a lung issue but may have underlying CAD given her Hx of smoking. - EF reduced with mild septal hypokinesis. - Troponin trend is that of demand ischemia and not an acute coronary syndrome. - Will need risk stratification with stress test as outpatient once better from lung perspective. - CV stable otherwise. - Will sign off. Please call with any questions.
--- NOTE | 2020-04-16 18:53 | PDOC.HOSPP ---
- Subjective Encounter Date: 04/16/20 Encounter Time: 10:00 Subjective: Patient only has a mild dry cough. She denies any chest tightness or chest pain. Patient states she feels a little bit better but still gets short of breath while ambulating. She was noted to desaturate to 85% on 2 L nasal cannula. Per nursing when the patient ambulates she desaturates. Home O2 evaluation is pending. - Objective Vital Signs & Weight: Vital Signs (12 hours) Temp Pulse Pulse Pulse Resp BP BP 04/16/20 18:46 97.9 F 75 20 04/16/20 18:45 86 24 H 04/16/20 13:53 71 15 04/16/20 11:21 98.0 F 04/16/20 10:42 81 23 H 04/16/20 09:50 84 86 130/76 117/79 04/16/20 08:12 04/16/20 08:11 80 20 04/16/20 08:10 80 20 04/16/20 08:00 04/16/20 07:39 98.0 F BP Pulse Ox Pulse Ox Pulse Ox 04/16/20 18:46 143/96 H 97 04/16/20 18:45 99 04/16/20 13:53 100 04/16/20 11:21 04/16/20 10:42 100 04/16/20 09:50 98 94 L 04/16/20 08:12 100 04/16/20 08:11 100 04/16/20 08:10 100 04/16/20 08:00 100 04/16/20 07:39 Weight Admit Weight 102 lb 4.712 oz Weight 102 lb 8 oz Most Recent Monitor Data Heart Rate from ECG 72 NIBP 148/84 NIBP BP-Mean 105 Respiration from ECG 19 SpO2 99 I&O: 04/15/20 04/16/20 04/17/20 06:59 06:59 06:59 Intake Total 120 370 Output Total 900 2200 Balance -780 -1830 Result Diagrams: 04/15/20 03:09 04/15/20 03:09 Hospitalist ROS - Review of Systems Constitutional: denies: fever, chills - Medication Medications: Active Medications Generic Name Dose Route Start Last Admin Trade Name Freq PRN Reason Stop Dose Admin Albuterol/Ipratropium 3 ml 04/15/20 10:30 04/16/20 18:45 Ipratropium/Albuterol Sulfate 3 Ml Neb NEB 3 ml [id number] BENITA Administration Arformoterol Tartrate 15 mcg 04/13/20 18:30 04/16/20 18:47 Arformoterol 15 Mcg/2 Ml Neb NEB 15 mcg BID-RT BENITA Administration Aspirin 325 mg 04/13/20 09:00 04/16/20 09:07 Aspirin 325 Mg Enteric Coated Tablet PO 325 mg DAILY BENITA Administration Atorvastatin Calcium 40 mg 04/14/20 21:00 04/15/20 21:13 Atorvastatin Calcium 40 Mg Tab PO 40 mg HS BENITA Administration Azithromycin 250 mg 04/14/20 23:00 04/15/20 22:21 Azithromycin 250 Mg Tab PO 04/17/20 23:01 250 mg Q24HR BENITA Administration Budesonide 0.5 mg 04/13/20 18:30 04/16/20 18:47 Budesonide 0.5 Mg/2 Ml Neb NEB 0.5 mg BID-RT BENITA Administration Enoxaparin Sodium 50 mg 04/13/20 21:00 04/16/20 09:07 Enoxaparin Sodium 60 Mg/0.6 Ml Syringe SC 50 mg Q12HR BENITA Administration Famotidine 20 mg 04/13/20 09:00 04/16/20 09:07 Famotidine 20 Mg Tab PO 20 mg BID BENITA Administration Methylprednisolone Sodium Succinate 20 mg 04/14/20 09:00 04/16/20 09:07 Methylprednisolone Sod Succ 40 Mg Vial IVP 20 mg BID BENITA Administration Montelukast Sodium 10 mg 04/13/20 21:00 04/15/20 21:13 Montelukast Sodium 10 Mg Tablet PO 10 mg QPM BENITA Administration Sodium Chloride 10 ml 04/13/20 09:00 04/16/20 09:08 Flush - Normal Saline 10 Ml Syringe IVF 10 ml Q12HR BENITA Administration - Exam General Appearance: NAD, awake alert Eye: PERRL, anicteric sclera ENT: normocephalic atraumatic, no oropharyngeal lesions Neck: no JVD Heart: RRR, no murmur, no gallops, no rubs Respiratory: CTAB, no wheezes, no rales, no ronchi Gastrointestinal: soft, non-tender, non-distended, normal bowel sounds Extremities: no cyanosis, no clubbing, no edema Skin: normal turgor, no lesions, no rashes Hosp A/P (1) Right lower lobe pulmonary nodule Code(s): R91.1 - SOLITARY PULMONARY NODULE Status: Acute (2) Left lower lobe pulmonary nodule Code(s): R91.1 - SOLITARY PULMONARY NODULE Status: Acute (3) Myocardial infarction due to demand ischemia Code(s): I21.A1 - MYOCARDIAL INFARCTION TYPE 2 Status: Acute (4) Macrocytic anemia Code(s): D53.9 - NUTRITIONAL ANEMIA, UNSPECIFIED Status: Acute - Plan Chest X ray: marked chronic lung change. Stable RLL pulmonary nodule. Nodule at left lung apex ECHO: EF is 40 to 45% with diastolic dysfunction. There is anteroseptal hypokinesis. There is a pericardial effusion without tamponade. There is mild TR. CT brain: Left MCA encephalomalacia . Remote right cerebellar hemisphere infarctions. Lacunar infarctions of the left basal ganglia of indeterminate age. This is a 65 year old female who was transferred. From [place] [facility] for shortness of breath and concern for ST elevation on color television console monitor. Currently admitted for COPD exacerbation Acute hypoxic respiratory failure secondary to COPD exacerbation - currently on 2L nasal cannula, wean oxygen sat to 92%. Chest X ray normal - she is on duonebs, brovana and IV steroids. Continue steroids IV bid - received ceftriaxone and azithromycin. Continue azithromycin day 3/5 - PT saw her and recommended home with home health #NSTEMI #Systolic heart failure - cardiology is following, not suspicious of acute coronary syndrome. Patient denies chest pain - lovenox was given once, but further doses held due to high PTT. It was resumed 03/16 - will switch therapeutic lovenox to prophylactic lovenox. - continue aspirin and statin RLL Pulmonary nodule and left lung nodule - stable, continue outpatient follow up History of previous stroke - continue aspirin 325 mg and will add statin Dispo : needs home oxygen evaluation . Possibly d/c home with home health tomorrow
[2020-04-16] MEDS ORDERED: Acetaminophen 500 MG TAB PO SCH (21:00)
[2020-04-16] MEDS: Montelukast Sodium 10 mg Tablet PO SCH (21:51)
[2020-04-16] MEDS: Atorvastatin Calcium 40 MG TAB PO SCH (21:51)
[2020-04-17] MEDS: Azithromycin 250 MG TAB PO SCH ×2 (01:13→21:56)
[2020-04-17] MEDS: Budesonide 0.5 MG/2 ML NEB NEB SCH ×2 (07:32→19:01)
[2020-04-17] MEDS: Arformoterol 15 MCG/2 ML NEB NEB SCH ×2 (07:32→19:11)
[2020-04-17] MEDS: Enoxaparin Sodium 40 MG/0.4 ML SYRINGE SC SCH (08:18)
[2020-04-17] MEDS: Aspirin 325 mg Enteric Coated Tablet PO SCH (08:18)
[2020-04-17] MEDS: Famotidine 20 MG TAB PO SCH ×2 (08:18→21:56)
[2020-04-17] MEDS: methylPREDNISolone Sod Succ 40 MG VIAL IVP SCH (08:18)
--- NOTE | 2020-04-17 09:34 | PRG ---
DATE OF SERVICE: 04/17/2020 SUBJECTIVE: The patient appears to be doing well, but still has difficulty with her expressive aphasia. OBJECTIVE: VITAL SIGNS: Temperature 97.5, pulse 68, respirations 20, O2 saturation 99% on 2 L, and blood pressure 152/82. HEENT: Unremarkable. NECK: No JVD. CHEST: Clear anteriorly. CARDIAC: S1 and S2, regular. ABDOMEN: Soft. EXTREMITIES: No edema. ASSESSMENT: Chronic obstructive pulmonary disease with exacerbation. PLAN: I am going to switch her to oral steroids and reduce the dose. I think, she will be able to go to rehab or home soon. Job ID: [id number]
--- NOTE | 2020-04-17 16:31 | PDOC.HOSPP ---
- Subjective Encounter Date: 04/17/20 Encounter Time: 07:00 Subjective: F/u: COPD The patient states her shortness of breath has improved. She still is anxious about going home and doesn't want to go home yet. She repeatedly talks about how short of breath she was when she first came in. She is tearful at times, and a minute later she will be happy The patient desaturated to 88% on room air while ambulating. She improved to 92% with 2L of oxygen . - Objective Vital Signs & Weight: Vital Signs (12 hours) Temp Pulse Pulse Pulse Resp BP BP 04/17/20 11:44 97.8 F 71 20 04/17/20 10:47 90 18 04/17/20 10:18 78 82 144/78 H 139/77 04/17/20 08:11 97.5 F L 68 20 04/17/20 08:07 04/17/20 04:35 97.8 F 82 18 BP Pulse Ox Pulse Ox Pulse Ox Pulse Ox 04/17/20 11:44 145/76 H 98 04/17/20 10:47 04/17/20 10:18 98 97 86 L 04/17/20 08:11 152/82 H 99 04/17/20 08:07 99 04/17/20 04:35 136/84 98 Weight Admit Weight 102 lb 4.712 oz Weight 102 lb 8 oz Most Recent Monitor Data Heart Rate from ECG 72 NIBP 148/84 NIBP BP-Mean 105 Respiration from ECG 19 SpO2 99 I&O: 04/16/20 04/17/20 04/18/20 06:59 06:59 06:59 Intake Total 370 260 Output Total 2200 150 Balance -1830 110 Result Diagrams: 04/15/20 03:09 04/15/20 03:09 Hospitalist ROS - Medication Medications: Active Medications Generic Name Dose Route Start Last Admin Trade Name Freq PRN Reason Stop Dose Admin Albuterol/Ipratropium 3 ml 04/15/20 10:30 04/17/20 14:30 Ipratropium/Albuterol Sulfate 3 Ml Neb NEB 3 ml [id number] BENITA Administration Arformoterol Tartrate 15 mcg 04/13/20 18:30 04/17/20 07:32 Arformoterol 15 Mcg/2 Ml Neb NEB 15 mcg BID-RT BENITA Administration Aspirin 325 mg 04/13/20 09:00 04/17/20 08:18 Aspirin 325 Mg Enteric Coated Tablet PO 325 mg DAILY BENITA Administration Atorvastatin Calcium 40 mg 04/14/20 21:00 04/16/20 21:51 Atorvastatin Calcium 40 Mg Tab PO 40 mg HS BENITA Administration Azithromycin 250 mg 04/14/20 23:00 04/17/20 01:13 Azithromycin 250 Mg Tab PO 04/17/20 23:01 250 mg Q24HR BENITA Administration Budesonide 0.5 mg 04/13/20 18:30 04/17/20 07:32 Budesonide 0.5 Mg/2 Ml Neb NEB 0.5 mg BID-RT BENITA Administration Enoxaparin Sodium 40 mg 04/17/20 09:00 04/17/20 08:18 Enoxaparin Sodium 40 Mg/0.4 Ml Syringe SC 40 mg 0900 BENITA Administration Famotidine 20 mg 04/13/20 09:00 04/17/20 08:18 Famotidine 20 Mg Tab PO 20 mg BID BENITA Administration Montelukast Sodium 10 mg 04/13/20 21:00 04/16/20 21:51 Montelukast Sodium 10 Mg Tablet PO 10 mg QPM BENITA Administration Sodium Chloride 10 ml 04/13/20 09:00 04/17/20 08:19 Flush - Normal Saline 10 Ml Syringe IVF 10 ml Q12HR BENITA Administration - Exam General Appearance: NAD, awake alert Eye: PERRL, anicteric sclera ENT: normocephalic atraumatic, no oropharyngeal lesions Neck: no JVD Heart: RRR, no murmur, no gallops, no rubs Respiratory: CTAB, no wheezes, no rales, no ronchi Gastrointestinal: soft, non-tender, non-distended, normal bowel sounds Extremities: no cyanosis, no clubbing, no edema Skin: normal turgor, no lesions, no rashes Neurological: cranial nerve grossly intact, normal sensation to touch, no weakness, no focal deficits Hosp A/P (1) Right lower lobe pulmonary nodule Code(s): R91.1 - SOLITARY PULMONARY NODULE Status: Acute (2) Left lower lobe pulmonary nodule Code(s): R91.1 - SOLITARY PULMONARY NODULE Status: Acute (3) Myocardial infarction due to demand ischemia Code(s): I21.A1 - MYOCARDIAL INFARCTION TYPE 2 Status: Acute (4) Macrocytic anemia Code(s): D53.9 - NUTRITIONAL ANEMIA, UNSPECIFIED Status: Acute - Plan Chest X ray: marked chronic lung change. Stable RLL pulmonary nodule. Nodule at left lung apex ECHO: EF is 40 to 45% with diastolic dysfunction. There is anteroseptal hypokinesis. There is a pericardial effusion without tamponade. There is mild TR. CT brain: Left MCA encephalomalacia . Remote right cerebellar hemisphere infarctions. Lacunar infarctions of the left basal ganglia of indeterminate age. This is a 65 year old female who was transferred. From [place] [facility] for shortness of breath and concern for ST elevation on conveyor monitor. Currently admitted for COPD exacerbation Acute hypoxic respiratory failure secondary to COPD exacerbation - currently on 2L nasal cannula, wean oxygen sat to 92%. Chest X ray normal - she is on duonebs, brovana and IV steroids. Steroids will be changed to oral - received ceftriaxone and azithromycin. Continue azithromycin day for one more day - PT saw her and recommended home with home health . Case management was consulted - she will need to be discharged on oxygen, case management is working on that #NSTEMI #Systolic heart failure - cardiology is following, not suspicious of acute coronary syndrome. Patient denies chest pain - continue aspirin and statin RLL Pulmonary nodule and left lung nodule - stable, continue outpatient follow up History of previous stroke - continue aspirin 325 mg and statin Dispo : needs home oxygen evaluation . Possibly d/c home with home health tomorrow
[2020-04-17] MEDS: Montelukast Sodium 10 mg Tablet PO SCH (21:56)
[2020-04-17] MEDS: Atorvastatin Calcium 40 MG TAB PO SCH (21:56)
[2020-04-17] MEDS: Zolpidem Tartrate 5 MG TAB PO PRN (21:57)
[2020-04-18] MEDS: Budesonide 0.5 MG/2 ML NEB NEB SCH ×2 (07:21→19:01)
[2020-04-18] MEDS: Arformoterol 15 MCG/2 ML NEB NEB SCH ×2 (07:21→18:59)
[2020-04-18] MEDS: Aspirin 325 mg Enteric Coated Tablet PO SCH (09:27)
[2020-04-18] MEDS: Famotidine 20 MG TAB PO SCH ×2 (09:27→22:47)
[2020-04-18] MEDS: predniSONE 20 MG TAB PO SCH (09:27)
[2020-04-18] MEDS: Enoxaparin Sodium 40 MG/0.4 ML SYRINGE SC SCH (09:27)
--- NOTE | 2020-04-18 11:16 | PRG ---
DATE OF SERVICE: 04/18/2020 SUBJECTIVE: The patient remains pleasantly confused. No complaints. OBJECTIVE: VITAL SIGNS: Temperature 97.5, pulse 78, respirations 20, oxygen saturation 98% on 2 L, and blood pressure 139/87. HEENT: Unremarkable. NECK: No JVD. CHEST: Clear. CARDIAC: S1 and S2, regular. ABDOMEN: Soft. EXTREMITIES: No edema. ASSESSMENT: Chronic obstructive pulmonary disease exacerbation. PLAN: The patient is probably ready for the next step of her care, rehab, prison, etc. Job ID: [id number]
[2020-04-18 16:15] VITALS: BMI 17.6
--- NOTE | 2020-04-18 17:33 | PDOC.HOSPP ---
- Subjective Encounter Date: 04/18/20 Encounter Time: 07:00 Subjective: f/u: COPD The patient states that she feels short of breath occasionally, but is better. She is anxious about going home. Discussed with case management, plan to look for long-term care facilities. She does not qualify for home health Home oxygen eval done and patient desaturates to 88% upon ambulation. SHe needs 2L on discharge. Patient cried when I told her this and was wondering why this happened. I explained to her that she needs to quit smoking. She states "it is only one cigarette a day." - Objective Vital Signs & Weight: Vital Signs (12 hours) Temp Pulse Resp BP Pulse Ox 04/18/20 16:17 98.3 F 92 20 125/72 98 04/18/20 11:15 97.4 F L 84 22 H 122/67 99 04/18/20 07:50 97.5 F L 78 20 139/87 98 04/18/20 07:22 80 16 Weight Admit Weight 102 lb 4.712 oz Weight 102 lb 8 oz Most Recent Monitor Data Heart Rate from ECG 72 NIBP 148/84 NIBP BP-Mean 105 Respiration from ECG 19 SpO2 99 I&O: 04/17/20 04/18/20 04/19/20 06:59 06:59 06:59 Intake Total 260 1050 Output Total 150 750 Balance 110 300 Result Diagrams: 04/15/20 03:09 04/15/20 03:09 Hospitalist ROS - Review of Systems Constitutional: denies: fever, chills - Medication Medications: Active Medications Generic Name Dose Route Start Last Admin Trade Name Cedricq PRN Reason Stop Dose Admin Albuterol/Ipratropium 3 ml 04/15/20 10:30 04/18/20 14:10 Ipratropium/Albuterol Sulfate 3 Ml Neb NEB 3 ml [id number] BENITA Administration Arformoterol Tartrate 15 mcg 04/13/20 18:30 04/18/20 07:21 Arformoterol 15 Mcg/2 Ml Neb NEB 15 mcg BID-RT BENITA Administration Aspirin 325 mg 04/13/20 09:00 04/18/20 09:27 Aspirin 325 Mg Enteric Coated Tablet PO 325 mg DAILY BENITA Administration Atorvastatin Calcium 40 mg 04/14/20 21:00 04/17/20 21:56 Atorvastatin Calcium 40 Mg Tab PO 40 mg HS BENITA Administration Budesonide 0.5 mg 04/13/20 18:30 04/18/20 07:21 Budesonide 0.5 Mg/2 Ml Neb NEB 0.5 mg BID-RT BENITA Administration Enoxaparin Sodium 40 mg 04/17/20 09:00 04/18/20 09:27 Enoxaparin Sodium 40 Mg/0.4 Ml Syringe SC 40 mg 0900 BENITA Administration Famotidine 20 mg 04/13/20 09:00 04/18/20 09:27 Famotidine 20 Mg Tab PO 20 mg BID BENITA Administration Montelukast Sodium 10 mg 04/13/20 21:00 04/17/20 21:56 Montelukast Sodium 10 Mg Tablet PO 10 mg QPM BENITA Administration Prednisone 20 mg 04/18/20 09:00 04/18/20 09:27 Prednisone 20 Mg Tab PO 20 mg DAILY BENITA Administration Sodium Chloride 10 ml 04/13/20 09:00 04/18/20 09:28 Flush - Normal Saline 10 Ml Syringe IVF 10 ml Q12HR BENITA Administration Zolpidem Tartrate 5 mg 04/17/20 16:33 04/17/20 21:57 Zolpidem Tartrate 5 Mg Tab PO 5 mg HSPRN PRN Administration Insomnia - Exam General Appearance: NAD, awake alert Eye: PERRL, anicteric sclera ENT: normocephalic atraumatic, no oropharyngeal lesions Neck: no JVD Heart: RRR, no murmur, no gallops, no rubs Respiratory: no wheezes, no rales, no ronchi Respiratory - other findings: diminished breath sounds Gastrointestinal: soft, non-tender, non-distended, normal bowel sounds Extremities: no cyanosis, no clubbing, no edema Skin: normal turgor, no lesions, no rashes Hosp A/P (1) Right lower lobe pulmonary nodule Code(s): R91.1 - SOLITARY PULMONARY NODULE Status: Acute (2) Left lower lobe pulmonary nodule Code(s): R91.1 - SOLITARY PULMONARY NODULE Status: Acute (3) Myocardial infarction due to demand ischemia Code(s): I21.A1 - MYOCARDIAL INFARCTION TYPE 2 Status: Acute (4) Macrocytic anemia Code(s): D53.9 - NUTRITIONAL ANEMIA, UNSPECIFIED Status: Acute - Plan Chest X ray: marked chronic lung change. Stable RLL pulmonary nodule. Nodule at left lung apex ECHO: EF is 40 to 45% with diastolic dysfunction. There is anteroseptal hypokinesis. There is a pericardial effusion without tamponade. There is mild TR. CT brain: Left MCA encephalomalacia . Remote right cerebellar hemisphere infarctions. Lacunar infarctions of the left basal ganglia of indeterminate age. This is a 65 year old female who was transferred. From [place] [facility] for shortness of breath and concern for ST elevation on monitor tech. Currently admitted for COPD exacerbation Acute hypoxic respiratory failure secondary to COPD exacerbation - currently on 2L nasal cannula, wean oxygen sat to 92%. Chest X ray normal - she is on duonebs, brovana and IV steroids. She is on prednisone 20 mg daily - received ceftriaxone and azithromycin. Completed course of azithromycin - PT saw her and recommended home with home health . Case management was consulted - she will need to be discharged on oxygen, case management is working on that #NSTEMI #Systolic heart failure - cardiology is following, not suspicious of acute coronary syndrome. Patient denies chest pain - continue aspirin and statin RLL Pulmonary nodule and left lung nodule - stable, continue outpatient follow up History of previous stroke - continue aspirin 325 mg and statin Dispo : [facility] to [facility]
[2020-04-18] MEDS ORDERED: Acetaminophen 325 MG TAB PO PRN (22:13)
[2020-04-18] MEDS: Montelukast Sodium 10 mg Tablet PO SCH (22:47)
[2020-04-18] MEDS: Zolpidem Tartrate 5 MG TAB PO PRN (22:47)
[2020-04-18] MEDS: Atorvastatin Calcium 40 MG TAB PO SCH (22:47)
[2020-04-19] MEDS: Budesonide 0.5 MG/2 ML NEB NEB SCH (06:43)
[2020-04-19] MEDS: Arformoterol 15 MCG/2 ML NEB NEB SCH (06:55)
--- NOTE | 2020-04-19 09:50 | PRG ---
DATE OF SERVICE: 04/19/2020 SUBJECTIVE: The patient still appears dysarthric and confused at times. OBJECTIVE: VITAL SIGNS: Temperature 97.8, pulse , respirations 24, O2 saturation 97% on 2 L, blood pressure 142/74. HEENT: Unremarkable. NECK: No adenopathy or JVD. LUNGS: Fairly clear without wheezing or rhonchi. CARDIAC: S1, S2. Regular. ABDOMEN: Soft. EXTREMITIES: No edema. ASSESSMENT: Chronic obstructive pulmonary disease-probably near baseline. Her chronic obstructive pulmonary disease is fairly severe. I do not expect we will see much improvement over how she looks right now. RECOMMENDATIONS: Honestly, she probably needs to be a chcf as I doubt she could take care of herself at home. No further pulmonary recommendations at this time. Please recall if further assistance needed. Job ID: [id number]
[2020-04-19] MEDS: Famotidine 20 MG TAB PO SCH (10:20)
[2020-04-19] MEDS: Enoxaparin Sodium 40 MG/0.4 ML SYRINGE SC SCH (10:20)
[2020-04-19] MEDS: Aspirin 325 mg Enteric Coated Tablet PO SCH (10:20)
[2020-04-19] MEDS: predniSONE 20 MG TAB PO SCH (10:20)
[2020-04-19 15:40] VITALS: BP 102/56; TEMP 97.5
--- NOTE | 2020-04-19 18:50 | PDOC.DS.DS ---
Provider - Provider Date of Admission: 04/12/20 23:00 Date of Discharge: 04/19/20 Admitting Provider: Tom Ramsay MD Consultations: Cardiology (Dr Gian Lopes), Pulmonary (Dr Efra Lucia) Primary Care Physician: Alecia Shipman MD Course - Hospital Course Hospital Course: This is a 65 year old female who was transferred. From [place] [facility] for shortness of breath and concern for ST elevation on director of cardiac cath lab. She was transferred here for cardiology evaluation. She urrently admitted for COPD exacerbation. She was found to be very tachypneic requiring BIPAP so was initially admitted to CCU for COPD exacerbation. Acute hypoxic respiratory failure secondary to COPD exacerbation : the patient initially required BIPAP but subsequently did not. She was placed on 2L nasal cannula, was treated with roselyn rivas and IV steroids. She was tapered to prednisone 20 mg daily. Chest X ray was unremarkable. She completed five day course of azithromycin. Home oxygen evaluation was done and patient desaturated to 88% on ambulation. She will be discharged on 2L of oxygen. It was recommended she go to a shelter but she declined. I spoke with her guardian who lives with her in a duplex and takes care of her 11/01 and was comfortable taking care of her. She will be sent home with 5 days of prednisone. She will be discharged with [facility] Brovana. She was advised to quit smoking. She refused a nicotine patch on discharge. I do think a component of her shortness of breath is secondary to anxiety because she does seem to purposely breathe fast and take deep breaths when she hears anything that she does not like. Her guardian agreed and also thinks the same. She should consider getting medication prescribed for anxiety with her PCP. #NSTEMI - possibly type II #Systolic heart failure -There was concern for possible ST elevation initially on a director of cardiac cath lab. Cardiology was consulted and not the patient had a STEMI. Her troponin peaked at 0.444. She will be discharged on aspirin 81 mg and statin. Cardiology recommended the patient get outpatient stress test when her COPD improves. She was advised to stop smoking. Echo showed an EF of 40 to 45%. She was discharged on Lasix 20 mg daily as needed, Coreg 3.125 mg p.o. twice daily and lisinopril 2.5 mg p.o. daily RLL Pulmonary nodule and left lung nodule: stable, continue outpatient follow up History of previous stroke: Patient resumed on aspirin 81 mg daily and statin. She has mild expressive aphasia at baseline. Tobacco abuse: Patient states she smokes 1 cigarette daily. She states she will quit on her own. Alcohol abuse: Patient drinks 1-2 beers daily. She was advised to stop drinking alcohol as well Anxiety: patient appears to have labile mood and cries easily but then a few minutes later will be very happy. When discussing that she requires oxygen she started crying and cried when I mentioned that she had to stop smoking as well. She was very reluctant to go home and sometimes hyperventilated right after I said this. Consider outpatient medication for anxiety. Pertinent Studies: Chest X ray: marked chronic lung change. Stable RLL pulmonary nodule. Nodule at left lung apex ECHO: EF is 40 to 45% with diastolic dysfunction. There is anteroseptal hypokinesis. There is a pericardial effusion without tamponade. There is mild TR. CT brain: Left MCA encephalomalacia . Remote right cerebellar hemisphere infarctions. Lacunar infarctions of the left basal ganglia of indeterminate age. Procedures: None - Labs Lab Results: 04/15/20 03:09 04/15/20 03:09 - Physical Exam Vitals: Vital Signs (12 hours) Temp Pulse Pulse Pulse Resp BP BP 04/19/20 15:39 97.5 F L 78 18 04/19/20 15:07 89 20 04/19/20 11:10 97.8 F 77 24 H 04/19/20 11:00 82 79 128/78 118/58 L 04/19/20 10:03 89 16 04/19/20 07:35 97.8 F 77 24 H 04/19/20 06:55 80 16 BP Pulse Ox Pulse Ox Pulse Ox 04/19/20 15:39 102/56 L 97 04/19/20 15:07 04/19/20 11:10 142/74 H 97 04/19/20 11:00 99 100 04/19/20 10:03 04/19/20 07:35 142/74 H 97 04/19/20 06:55 Weight Admit Weight 102 lb 4.712 oz Weight 92 lb 12.8 oz Most Recent Monitor Data Heart Rate from ECG 72 NIBP 148/84 NIBP BP-Mean 105 Respiration from ECG 19 SpO2 99 Physical Exam: The patient was seen and examined on the day of discharge. General: patient alert, awake oriented times three Neuro: CN II -XII are intact. Mild weakness on right side which is chronic. She has mild expressive aphasia CVS: RRR, no murmurs, rubs, gallops Lungs: diminished breath sounds diffusely Abdomen: +BS, soft, nontender, nondistended Extremities: no edema Problem - Problem (1) Right lower lobe pulmonary nodule Code(s): R91.1 - SOLITARY PULMONARY NODULE Status: Acute (2) Left lower lobe pulmonary nodule Code(s): R91.1 - SOLITARY PULMONARY NODULE Status: Acute (3) Myocardial infarction due to demand ischemia Code(s): I21.A1 - MYOCARDIAL INFARCTION TYPE 2 Status: Acute (4) Macrocytic anemia Code(s): D53.9 - NUTRITIONAL ANEMIA, UNSPECIFIED Status: Acute - Time spent with Patient (mins): 35 Plan - Discharge Medications Prescriptions: Aspirin [Aspirin EC] 81 mg PO DAILY #30 tablet. Arformoterol [Brovana] 15 mcg NEB BID-RT #1 neb Carvedilol [Coreg] 3.125 mg PO BID #60 tablet Furosemide 20 mg PO DAILY PRN #30 tablet PRN Reason: Edema Atorvastatin Calcium [Lipitor] 40 mg PO HS #30 tab Lisinopril 2.5 mg PO DAILY #30 tablet predniSONE 20 mg PO DAILY #5 tab Budesonide [Pulmicort Neb Solution] 0.5 mg NEB BID-RT #1 inhaler Montelukast Sodium [Singulair] 10 mg PO QPM #30 tab Tiotropium Charlton [Spiriva] 18 mcg IH DAILY #1 ampule Home Medications: Medication Instructions Recorded Confirmed Type Albuterol Sulfate [Albuterol 0.63 mg NEB BID 04/13/20 04/13/20 History Sulfate Neb] Albuterol Sulfate [Proventil Hfa] 2 puff INH Q6H PRN 04/13/20 04/13/20 History Docusate [Colace] 100 mg PO BID PRN 04/13/20 04/13/20 History Arformoterol [Brovana] 15 mcg NEB BID-RT #1 neb 04/19/20 Rx Aspirin [Aspirin EC] 81 mg PO DAILY #30 tablet. 04/19/20 Rx Atorvastatin Calcium [Lipitor] 40 mg PO HS #30 tab 04/19/20 Rx Budesonide [Pulmicort Neb Solution] 0.5 mg NEB BID-RT #1 inhaler 04/19/20 Rx Carvedilol [Coreg] 3.125 mg PO BID #60 tablet 04/19/20 Rx Furosemide 20 mg PO DAILY PRN #30 tablet 04/19/20 Rx Lisinopril 2.5 mg PO DAILY #30 tablet 04/19/20 Rx Montelukast Sodium [Singulair] 10 mg PO QPM #30 tab 04/19/20 Rx Tiotropium Charlton [Spiriva] 18 mcg IH DAILY #1 ampule 04/19/20 Rx predniSONE 20 mg PO DAILY #5 tab 04/19/20 Rx Allergies: No Known Drug Allergies Allergy (Verified 11/18/12 23:51) - Discharge Instructions Activity:: Activity as Tolerated, Cardiopulmonary Limits Nourishment:: Heart Healthy Diet - Follow up Plan Referrals: Cardiac Rehab - [place] [Outside] - 7 Days (Your doctor has ordered outpatient cardiac rehab for you to begin within 1-2 weeks after you go home from the hospital. The location nearest to you is the [facility]. The front office in [place] will call you in 1-2 days to get you scheduled for your evaluation. If you do not receive a call, please reach out to them at [phone] and request an appointment. Should you have any trouble or need assistance, please call the cardiac rehab main line in [place] at [phone]. ) [facility] [Outside] (Home oxygen.) Gian Lopes MD [Active] - 2-3 Weeks (Please call the office to schedule an appointment within 2 weeks. ) Alecia Shipman MD [Primary Care Provider] - 7 Days (Please call the office to schedule an appointment within 7 days.) Disposition: HOME Quality - Care Measures CORE MEASURES:: N/A
== END 2020-04-19 19:01 | disposition home or self-care (01) | DRG 189 ==
LOC: ERS 21:42 → ERHOLD 23:00 → CCU 04-13 07:47 → IMCU/EMU 04-14 17:53 → 2NO 04-16 17:52
PROVIDERS: ADMIT Internal Medicine; ATTEND Internal Medicine
PROC: 5A09457 Assistance with Respiratory Ventilation, 24-96 Consecutive Hours, Continuous Positive Airway Pressure (ICD-10-PCS; principal; 2020-04-12)
DX: J96.01 Acute respiratory failure with hypoxia (principal); I21.A1 Myocardial infarction type 2; J44.1 Chronic obstructive pulmonary disease with (acute) exacerbation; I42.9 Cardiomyopathy, unspecified; E44.1 Mild protein-calorie malnutrition; Z68.1 Body mass index [BMI] 19.9 or less, adult; I50.22 Chronic systolic (congestive) heart failure; J96.02 Acute respiratory failure with hypercapnia; Z20.828 Contact with and (suspected) exposure to other viral communicable diseases; F17.210 Nicotine dependence, cigarettes, uncomplicated; R91.1 Solitary pulmonary nodule; F10.10 Alcohol abuse, uncomplicated; D53.9 Nutritional anemia, unspecified; I69.320 Aphasia following cerebral infarction; Z79.899 Other long term (current) drug therapy
CPT/HCPCS: 36415; 70450; 80048; 80061; 82607; 82746; 83735; 84484; 85025; 85730; 87635; 93005; 93306; 94150; 94640; 94660; 94760; 96360; 96361; 97139; J0456; J0696; J1644; J1650; J2920; J3490; J7050; J7512; J7620; J7626; U0003

== ENCOUNTER 2020-08-21 12:01 | Emergency (ER) | payer OTHER ==
[2020-08-21] MEDS ORDERED: methylPREDNISolone Sod Succ/PF 125 MG/2 ML VIAL ONE (12:19)
[2020-08-21] MEDS ORDERED: Albuterol 200 PUFF (6.7GM INHALER) ONE (12:19)
--- NOTE | 2020-08-21 12:56 | RAD ---
EXAM: Single view of the chest HISTORY: Shortness of breath COMPARISON: 04/12/[address] chest 08/16/2019 FINDINGS: Single view of the chest shows a normal sized cardiomediastinal silhouette. Hyperexpansion of the lungs is consistent with COPD. Atherosclerotic calcifications are seen in the aorta. There is a stable calcified granuloma in the right lung base. There is no evidence of consolidation or ple ural effusion. No acute osseous abnormality. IMPRESSION: No evidence of acute cardiopulmonary disease
[2020-08-21 12:57] LABS: #Eosinphils 0.1 thou/uL (0.0-0.7); #Lymphocytes 1.4 thou/uL (1.20-3.40); #Monocytes 0.5 thou/uL (0.11-0.59); #Neutrophils 4.3 thou/uL (1.40-6.50); %Basophils 0.5 % (0.0-1.0); %Lymphocytes 22.3 % (21.0-51.0); %Monocytes 8.2 % (0.0-10.0); Hemoglobin 13.3 g/dL (12.0-16.0); Mean Corpuscular HGB CONC 32.5 g/dL (32.0-36.0); Mean Corpuscular Hemoglobin 33.8 pg (27.0-31.0); Mean Platelet Volume 8.1 fL (7.4-10.4); Platelet Count 251 thou/uL (130-400); RBC Distribution Width 10.4 % (11.5-14.5); Red Blood Cell (RBC) Count 3.92 mill/uL (4.20-5.40); White Blood Cell (WBC) Count 6.3 thou/uL (4.8-10.8)
[2020-08-21 13:20] LABS: ALT (SGPT) 16 U/L (8-55); AST (SGOT) 24 U/L (5-34); Albumin 4.4 g/dL (3.4-4.8); Alkaline Phosphatase 58 U/L (40-110); Anion Gap 13 mmol/L (10-20); BUN (Urea Nitrogen) 8 mg/dL (9.8-20.1); Calc. Creatinine Clearance 0 mL/min (70-130); Calcium 9.1 mg/dL (7.8-10.44); Carbon Dioxide 27 mmol/L (23-31); Chloride 94 mmol/L (98-107); Globulin 2.6 g/dL (2.4-3.5); Glucose 114 mg/dL (80-115); Potassium 3.8 mmol/L (3.5-5.1); Sodium 130 mmol/L (136-145)
--- NOTE | 2020-08-24 15:39 | EKG ---
Test Reason : Blood Pressure : / mmHG Vent. Rate : 068 BPM Atrial Rate : 068 BPM P-R Int : 148 ms QRS Dur : 068 ms QT Int : 396 ms P-R-T Axes : 084 080 073 degrees QTc Int : 421 ms Normal sinus rhythm Possible Left atrial enlargement Septal infarct , age undetermined Abnormal ECG Confirmed by BALTA NARANJO DO ([id number]), sports editor MAYKEL RIVERA ([id number]) on 08/24/2020 3:39:17 PM Referred By: Confirmed By:BALTA NARANJO DO
== END 2020-08-21 14:40 | disposition home or self-care (01) ==
LOC: ERS 12:01
DX: R06.02 Shortness of breath (principal); J44.9 Chronic obstructive pulmonary disease, unspecified; Z86.73 Personal history of transient ischemic attack (TIA), and cerebral infarction without residual deficits; F17.210 Nicotine dependence, cigarettes, uncomplicated
CPT/HCPCS: 71045; 80053; 84484; 85025; 93005; 96374; J2930

== ENCOUNTER 2022-03-27 23:54 | Inpatient (IN) | payer MEDICARE, MEDICAID ==
[2022-03-28] MEDS ORDERED: Albuterol Sulfate 2.5 mg/0.5 ml Neb ONE (00:14)
[2022-03-28] MEDS ORDERED: Albuterol Sulfate 2.5 mg/3 ml Neb ONE (00:14)
[2022-03-28 00:49] LABS: #Lymphocytes 0.6 thou/uL (1.20-3.40); #Monocytes 0.6 thou/uL (0.11-0.59); #Neutrophils 8.9 thou/uL (1.40-6.50); %Basophils 0.2 % (0.0-1.0); %Eosinophils 0.2 % (0.0-10.0); %Lymphocytes 6.2 % (21.0-51.0); %Monocytes 5.7 % (0.0-10.0); %Neutrophils 87.7 % (42.0-75.0); Mean Corpuscular HGB CONC 33.7 g/dL (32.0-36.0); Mean Corpuscular Hemoglobin 33.7 pg (27.0-31.0); Mean Corpuscular Volume 99.9 fL (78.0-98.0); Mean Platelet Volume 6.6 fL (7.4-10.4); Platelet Count 302 thou/uL (130-400); RBC Distribution Width 10.9 % (11.5-14.5); Red Blood Cell (RBC) Count 3.56 mill/uL (4.20-5.40); White Blood Cell (WBC) Count 10.1 thou/uL (4.8-10.8)
[2022-03-28 01:00] LABS: ALT (SGPT) 19 U/L (8-55); AST (SGOT) 21 U/L (5-34); Albumin 4.5 g/dL (3.4-4.8); Alkaline Phosphatase 91 U/L (40-110); Anion Gap 12 mmol/L (10-20); BUN (Urea Nitrogen) 9 mg/dL (9.8-20.1); Bilirubin, Total 1.4 mg/dL (0.2-1.2); Calc. Creatinine Clearance 0 mL/min (70-130); Calcium 8.9 mg/dL (7.8-10.44); Carbon Dioxide 29 mmol/L (23-31); Chloride 84 mmol/L (98-107); Estimated GFR 102; Globulin 2.2 g/dL (2.4-3.5); Glucose 147 mg/dL (80-115); Potassium 3.7 mmol/L (3.5-5.1); Protein, Total 6.7 g/dL (5.8-8.1); Sodium 121 mmol/L (136-145)
[2022-03-28 01:06] LABS: SARS-CoV-2 NAA Rapid Test Not Detected (NotDetected)
[2022-03-28] MEDS ORDERED: Azithromycin 500 MG VIAL ONE (02:13)
[2022-03-28] MEDS ORDERED: Acetaminophen 325 MG TAB PO PRN (02:40)
[2022-03-28] MEDS ORDERED: Ondansetron PF 4 MG/2 ML Vial IVP PRN (02:40)
[2022-03-28] MEDS: methylPREDNISolone Sod Succ 40 MG VIAL IVP SCH ×3 (05:12→18:39)
[2022-03-28] MEDS: cefTRIAXone\\ROCEPHIN 1 GM in Sodium Chloride 0.9% 100 ML IVPB SCH (05:12)
[2022-03-28 06:29] LABS: #Basophils 0.1 thou/uL (0.0-0.2); #Lymphocytes 0.1 thou/uL (1.20-3.40); #Monocytes 0.1 thou/uL (0.11-0.59); #Neutrophils 5.3 thou/uL (1.40-6.50); %Basophils 1.2 % (0.0-1.0); %Eosinophils 0.4 % (0.0-10.0); %Lymphocytes 2.4 % (21.0-51.0); %Monocytes 2.3 % (0.0-10.0); %Neutrophils 93.7 % (42.0-75.0); Hemoglobin 12.2 g/dL (12.0-16.0); Mean Corpuscular HGB CONC 34.5 g/dL (32.0-36.0); Mean Corpuscular Hemoglobin 34.8 pg (27.0-31.0); Mean Platelet Volume 6.3 fL (7.4-10.4); Platelet Count 287 thou/uL (130-400); RBC Distribution Width 10.9 % (11.5-14.5); White Blood Cell (WBC) Count 5.7 thou/uL (4.8-10.8)
[2022-03-28 06:43] LABS: Anion Gap 11 mmol/L (10-20); BUN (Urea Nitrogen) 9 mg/dL (9.8-20.1); Calc. Creatinine Clearance 68 mL/min (70-130); Calcium 8.8 mg/dL (7.8-10.44); Carbon Dioxide 29 mmol/L (23-31); Chloride 84 mmol/L (98-107); Estimated GFR 103; Glucose 141 mg/dL (80-115); Potassium 3.7 mmol/L (3.5-5.1); Sodium 120 mmol/L (136-145)
[2022-03-28 09:34] LABS: Actual Bicarbonate (HCO3a) 28.8 mEq/L (22-28); Base Excess (BEa) 3.3 mEq/L (-2.0 to +3.0); CO2 Tension 47.3 mmHg (35.0-45.0); Calcium, Ionized (arterial) 1.16 mmol/L (1.12-1.30); Carboxyhemoglobin (COHb) 0.1 gm% (0.0-3.0); Hemoglobin (Hb) 12.3 g/dL (12.0-16.0); O2 Tension (PaO2), arterial 121.7 mmHg (> 80.0); Potassium - ABG Lab 3.89 mmol/L (3.70-5.30)
[2022-03-28 09:36] LABS: ALV-art Gradient 104.375 mmHg (0-20); Puncture Site LRA
[2022-03-28] MEDS: Enoxaparin Sodium 30 MG/0.3 ML SYRINGE SC SCH (09:56)
[2022-03-28] MEDS ORDERED: Iopamidol 370 76% 100 ML VIAL ONE (10:01)
[2022-03-28 19:40] LABS: Anion Gap 14 mmol/L (10-20); BUN (Urea Nitrogen) 7 mg/dL (9.8-20.1); Calc. Creatinine Clearance 66 mL/min (70-130); Calcium 9.3 mg/dL (7.8-10.44); Carbon Dioxide 27 mmol/L (23-31); Chloride 85 mmol/L (98-107); Estimated GFR 102; Glucose 125 mg/dL (80-115); Potassium 4.2 mmol/L (3.5-5.1); Sodium 122 mmol/L (136-145)
[2022-03-28] MEDS ORDERED: Sodium Chloride 0.9% 1,000 ML IV SCH (20:15)
[2022-03-29] MEDS: methylPREDNISolone Sod Succ 40 MG VIAL IVP SCH ×4 (00:46→18:23)
[2022-03-29] MEDS: Azithromycin 500 MG in Sodium Chloride 0.9% 250 ML 250 ML IVPB SCH (03:13)
[2022-03-29 03:45] LABS: #Basophils 0.1 thou/uL (0.0-0.2); #Lymphocytes 0.2 thou/uL (1.20-3.40); #Monocytes 0.3 thou/uL (0.11-0.59); #Neutrophils 4.4 thou/uL (1.40-6.50); %Basophils 1.7 % (0.0-1.0); %Eosinophils 0.2 % (0.0-10.0); %Lymphocytes 4.8 % (21.0-51.0); %Monocytes 5.9 % (0.0-10.0); %Neutrophils 87.4 % (42.0-75.0); Hemoglobin 12.3 g/dL (12.0-16.0); Mean Corpuscular HGB CONC 33.2 g/dL (32.0-36.0); Mean Corpuscular Hemoglobin 33.5 pg (27.0-31.0); Mean Platelet Volume 7.1 fL (7.4-10.4); Platelet Count 308 thou/uL (130-400); Red Blood Cell (RBC) Count 3.67 mill/uL (4.20-5.40)
[2022-03-29 03:53] LABS: Anion Gap 13 mmol/L (10-20); BUN (Urea Nitrogen) 11 mg/dL (9.8-20.1); Calc. Creatinine Clearance 58 mL/min (70-130); Calcium 9.2 mg/dL (7.8-10.44); Carbon Dioxide 30 mmol/L (23-31); Chloride 86 mmol/L (98-107); Estimated GFR 99; Glucose 132 mg/dL (80-115); Potassium 4.2 mmol/L (3.5-5.1); Sodium 125 mmol/L (136-145)
[2022-03-29] MEDS: cefTRIAXone\\ROCEPHIN 1 GM in Sodium Chloride 0.9% 100 ML IVPB SCH (05:15)
[2022-03-29] MEDS: Enoxaparin Sodium 30 MG/0.3 ML SYRINGE SC SCH (07:41)
[2022-03-29] MEDS ORDERED: HYDROcodone/Acetaminophen 5/325 mg Tablet PO PRN (16:15)
[2022-03-29 17:34] LABS: Anion Gap 13 mmol/L (10-20); BUN (Urea Nitrogen) 14 mg/dL (9.8-20.1); Calc. Creatinine Clearance 60 mL/min (70-130); Carbon Dioxide 29 mmol/L (23-31); Chloride 91 mmol/L (98-107); Estimated GFR 100; Glucose 129 mg/dL (80-115); Potassium 3.9 mmol/L (3.5-5.1); Sodium 129 mmol/L (136-145)
[2022-03-30] MEDS: Azithromycin 500 MG in Sodium Chloride 0.9% 250 ML 250 ML IVPB SCH (01:25)
[2022-03-30] MEDS: cefTRIAXone\\ROCEPHIN 1 GM in Sodium Chloride 0.9% 100 ML IVPB SCH (04:09)
[2022-03-30 04:14] LABS: #Lymphocytes 0.2 thou/uL (1.20-3.40); #Monocytes 0.3 thou/uL (0.11-0.59); %Eosinophils 0.3 % (0.0-10.0); %Lymphocytes 4.8 % (21.0-51.0); %Monocytes 6.7 % (0.0-10.0); %Neutrophils 88.2 % (42.0-75.0); Hemoglobin 12.8 g/dL (12.0-16.0); Mean Corpuscular HGB CONC 34.1 g/dL (32.0-36.0); Mean Corpuscular Hemoglobin 35.3 pg (27.0-31.0); Mean Platelet Volume 6.8 fL (7.4-10.4); Platelet Count 321 thou/uL (130-400); RBC Distribution Width 11.1 % (11.5-14.5); Red Blood Cell (RBC) Count 3.62 mill/uL (4.20-5.40); White Blood Cell (WBC) Count 4.6 thou/uL (4.8-10.8)
[2022-03-30 04:37] LABS: Anion Gap 12 mmol/L (10-20); BUN (Urea Nitrogen) 17 mg/dL (9.8-20.1); Calc. Creatinine Clearance 64 mL/min (70-130); Calcium 9.3 mg/dL (7.8-10.44); Carbon Dioxide 30 mmol/L (23-31); Chloride 94 mmol/L (98-107); Estimated GFR 101; Glucose 117 mg/dL (80-115); Potassium 4.3 mmol/L (3.5-5.1); Sodium 132 mmol/L (136-145)
[2022-03-30] MEDS: methylPREDNISolone Sod Succ 40 MG VIAL IVP SCH ×3 (05:09→20:50)
[2022-03-30] MEDS: Enoxaparin Sodium 30 MG/0.3 ML SYRINGE SC SCH (09:10)
[2022-03-31] MEDS: Azithromycin 500 MG in Sodium Chloride 0.9% 250 ML 250 ML IVPB SCH (01:16)
[2022-03-31 04:10] LABS: #Lymphocytes 0.2 thou/uL (1.20-3.40); #Monocytes 0.2 thou/uL (0.11-0.59); #Neutrophils 6.3 thou/uL (1.40-6.50); %Basophils 0.2 % (0.0-1.0); %Eosinophils 0.2 % (0.0-10.0); %Lymphocytes 3.4 % (21.0-51.0); %Monocytes 3.6 % (0.0-10.0); %Neutrophils 92.7 % (42.0-75.0); Hemoglobin 13.1 g/dL (12.0-16.0); Mean Corpuscular HGB CONC 32.2 g/dL (32.0-36.0); Mean Corpuscular Hemoglobin 33.5 pg (27.0-31.0); Mean Platelet Volume 7.4 fL (7.4-10.4); Platelet Count 308 thou/uL (130-400); RBC Distribution Width 11.4 % (11.5-14.5); Red Blood Cell (RBC) Count 3.91 mill/uL (4.20-5.40); White Blood Cell (WBC) Count 6.8 thou/uL (4.8-10.8)
[2022-03-31 04:25] LABS: Anion Gap 13 mmol/L (10-20); BUN (Urea Nitrogen) 24 mg/dL (9.8-20.1); Calc. Creatinine Clearance 72 mL/min (70-130); Calcium 9.1 mg/dL (7.8-10.44); Carbon Dioxide 30 mmol/L (23-31); Chloride 94 mmol/L (98-107); Estimated GFR 104; Glucose 106 mg/dL (80-115); Sodium 133 mmol/L (136-145)
[2022-03-31 04:40] VITALS: BMI 14.6
[2022-03-31] MEDS: cefTRIAXone\\ROCEPHIN 1 GM in Sodium Chloride 0.9% 100 ML IVPB SCH (04:40)
[2022-03-31] MEDS: methylPREDNISolone Sod Succ 40 MG VIAL IVP SCH ×2 (08:06→20:11)
[2022-03-31] MEDS: Enoxaparin Sodium 30 MG/0.3 ML SYRINGE SC SCH (08:06)
[2022-04-01] MEDS: Azithromycin 500 MG in Sodium Chloride 0.9% 250 ML 250 ML IVPB SCH (01:50)
[2022-04-01 04:14] LABS: #Lymphocytes 0.2 thou/uL (1.20-3.40); #Monocytes 0.3 thou/uL (0.11-0.59); #Neutrophils 4.6 thou/uL (1.40-6.50); %Basophils 0.2 % (0.0-1.0); %Eosinophils 0.1 % (0.0-10.0); %Lymphocytes 3.5 % (21.0-51.0); %Monocytes 5.7 % (0.0-10.0); %Neutrophils 90.5 % (42.0-75.0); Hemoglobin 12.7 g/dL (12.0-16.0); Mean Corpuscular HGB CONC 32.8 g/dL (32.0-36.0); Mean Corpuscular Hemoglobin 33.5 pg (27.0-31.0); Mean Platelet Volume 6.8 fL (7.4-10.4); Platelet Count 321 thou/uL (130-400); RBC Distribution Width 11.3 % (11.5-14.5); Red Blood Cell (RBC) Count 3.81 mill/uL (4.20-5.40)
[2022-04-01 04:32] LABS: Anion Gap 14 mmol/L (10-20); BUN (Urea Nitrogen) 26 mg/dL (9.8-20.1); Calc. Creatinine Clearance 74 mL/min (70-130); Calcium 9.1 mg/dL (7.8-10.44); Carbon Dioxide 28 mmol/L (23-31); Chloride 96 mmol/L (98-107); Estimated GFR 105; Glucose 108 mg/dL (80-115); Potassium 4.1 mmol/L (3.5-5.1); Sodium 134 mmol/L (136-145)
[2022-04-01] MEDS: cefTRIAXone\\ROCEPHIN 1 GM in Sodium Chloride 0.9% 100 ML IVPB SCH (04:42)
[2022-04-01] MEDS: methylPREDNISolone Sod Succ 40 MG VIAL IVP SCH (08:21)
[2022-04-01] MEDS: Enoxaparin Sodium 30 MG/0.3 ML SYRINGE SC SCH (08:21)
[2022-04-01] MEDS: Lisinopril 20 MG TAB PO SCH (09:56)
[2022-04-02] MEDS: Enoxaparin Sodium 30 MG/0.3 ML SYRINGE SC SCH (08:32)
[2022-04-02] MEDS: Lisinopril 20 MG TAB PO SCH (08:32)
[2022-04-02] MEDS ORDERED: methylPREDNISolone Sod Succ 40 MG VIAL IVP SCH (09:00)
[2022-04-02 12:46] VITALS: TEMP 97.9
== END 2022-04-02 14:50 | disposition hospice, inpatient (51) | DRG 189 ==
LOC: ERS 23:54 → IMCU/EMU 03-28 02:43
PROVIDERS: ADMIT Internal Medicine; ATTEND Internal Medicine
PROC: 5A09457 Assistance with Respiratory Ventilation, 24-96 Consecutive Hours, Continuous Positive Airway Pressure (ICD-10-PCS; principal; 2022-03-28)
DX: J96.21 Acute and chronic respiratory failure with hypoxia (principal); E43 Unspecified severe protein-calorie malnutrition; Z66 Do not resuscitate; Z51.5 Encounter for palliative care; Z20.822 Contact with and (suspected) exposure to COVID-19; E22.2 Syndrome of inappropriate secretion of antidiuretic hormone; I50.42 Chronic combined systolic (congestive) and diastolic (congestive) heart failure; R64 Cachexia; Z68.1 Body mass index [BMI] 19.9 or less, adult; M48.54XA Collapsed vertebra, not elsewhere classified, thoracic region, initial encounter for fracture; C34.01 Malignant neoplasm of right main bronchus; J43.9 Emphysema, unspecified; M25.561 Pain in right knee; R91.8 Other nonspecific abnormal finding of lung field; E78.00 Pure hypercholesterolemia, unspecified; R59.1 Generalized enlarged lymph nodes; D64.9 Anemia, unspecified; Z99.81 Dependence on supplemental oxygen; I69.328 Other speech and language deficits following cerebral infarction; Z79.899 Other long term (current) drug therapy; Z79.51 Long term (current) use of inhaled steroids; Z79.52 Long term (current) use of systemic steroids; Z98.890 Other specified postprocedural states; Z87.891 Personal history of nicotine dependence
CPT/HCPCS: 36415; 36600; 71045; 71275; 80048; 80053; 82533; 82805; 83605; 83880; 83930; 83935; 84300; 84484; 85025; 87040; 93005; 94640; 94644; 94660; 96374; J0456; J0696; J1650; J2920; J3490; J7050; J7611; J7620; Q9967; U0002